=== PATIENT | female | born 1960 ===

== ENCOUNTER 2025-07-18 09:03 | Outpatient (AMB) | payer BC, SELFPAY | END 2025-07-18 12:51 | disposition home or self-care (01) | PROVIDERS: Visit Provider Registered Nurse Emergency | DX: J30.89 Other allergic rhinitis (principal) | CPT/HCPCS: 95117; 95165 ==

== ENCOUNTER 2025-08-01 09:13 | Outpatient (AMB) | payer BC, SELFPAY | END 2025-08-01 09:22 | disposition home or self-care (01) | LOC: HO.HMGAL 09:13 | PROVIDERS: Visit Provider Registered Nurse Emergency | DX: J30.89 Other allergic rhinitis (principal) | CPT/HCPCS: 95117; 95165 ==

== ENCOUNTER 2025-08-17 08:37 | Outpatient (AMB) | payer BC, SELFPAY | END 2025-08-17 08:37 | disposition home or self-care (01) | LOC: HO.HMGAL 08:37 | PROVIDERS: PCP Nurse Practitioner Family; Visit Provider Registered Nurse Emergency | DX: J30.89 Other allergic rhinitis (principal) | CPT/HCPCS: 95117; 95165 ==

== ENCOUNTER 2025-08-29 10:42 | Outpatient (AMB) | payer MEDICARE, SELFPAY ==
--- OUTSIDE RECORDS SUMMARY | 2025-08-29 12:49 | XMS_ITS | Data Portability ---
Author Organization [place] - [facility],, GRACE NORMAN MD Address [address] [address] Care Team Providers Care Parts Counterman Name Role Phone MIKEY CHAMBERLAIN Primary Care Provider [phone] Assessment No assessment recorded. Plan of Treatment Reminders Order Date Submit Date Provider Last Modified By Organization Details Last Modified Time Details Appointments ANNUAL EXAM 2025 09:20A M Grace Norman MD Not available Not available Not available Lab cytology report, thin prep, smear or scraping , cervical or vaginal 2024 025 KRISHNA [facility] (Centralized Electronic Ordering - All Locations), Patient Can Go To The Location Of Their Choice, [id number] 01/21/2025 16:15:56 hemoglob in, gastroin testinal , stool 2024 025 [email or web address] 1 In-Office Order, Internal Use Only DO Not Attach Compendium DO Not Attach Compendium, Do Not Delete/merge, [id number] 01/19/2025 10:58:38 pap test, thinprep , cervical 2022 023 [email or web address] [facility] (Centralized Electronic Ordering - All Locations), Patient Can Go To The Location Of Their Choice, [id number] 11/12/2023 09:06:10 fecal occult blood, stool 2022 023 [email or web address] 1 In-Office Order, Internal Use Only DO Not Attach Compendium DO Not Attach Compendium, Do Not Delete/merge, [id number] 11/05/2023 09:25:25 pap test, thinprep , cervical 2021 022 [email or web address] [facility] (Centralized Electronic Ordering - All Locations), Patient Can Go To The Location Of Their Choice, [id number] 10/15/2022 07:39:03 fecal occult blood, stool 2021 022 [email or web address] 1 In-Office Order, Internal Use Only DO Not Attach Compendium DO Not Attach Compendium, Do Not Delete/merge, [id number] 10/08/2022 09:45:51 pap test, thinprep , cervical 2020 021 [email or web address] [facility], Cytopathology Service, [address], [place], [address], 10/09/2021 07:23:57 fecal occult blood, stool 2020 021 [email or web address] 1 In-Office Order, Internal Use Only DO Not Attach Compendium DO Not Attach Compendium, Do Not Delete/merge, [id number] 09/18/2021 10:50:09 Referral endocrin ology referral - worsenin g osteopor osis despite being on raloxife ne since 2014. Has gastriti s, takes 40 mg omeprazo le daily. 2021 022 [facility] -(Surgeon), [address], [address], [place], [address], 02/19/2022 13:34:02 Procedures None recorded . Surgeries None recorded . Imaging US, breast, bilatera l, complete 2024 025 [facility] ([facility]), [address], [place], [address], 01/27/2025 15:37:49 MAMMO, screenin g, digital, bilatera l - Breast Aspirati on and/or Biopsy if needed 2024 025 [facility], [address], [address], [place], [address], 01/27/2025 15:37:39 MAMMO, screenin g, digital, bilatera l - Breast Aspirati on and/or Biopsy if needed 2022 023 [email or web address] [facility]), [address] [place], [address], 11/01/2024 08:41:22 MAMMO, screenin g, digital, bilatera l 2021 022 [facility]), [address] [place], [address], 10/01/2023 12:04:59 bone density 2020 021 [facility]), [facility] [place], [address], 11/30/2021 14:32:47 MAMMO, screenin g, digital, bilatera l [address] [facility] ([facility]), [facility] [place], [address], 09/30/2021 16:36:34 Medication Orders triamcin olone acetonid e 0.1 % topical ointment 2024 025 smacmillan 1 [facility], [facility], [place], [address], 01/19/2025 10:58:41 triamcin olone acetonid e 0.1 % topical ointment 2022 023 KRISHNA [facility], [address] [place] [address], [place], [address], 11/05/2023 09:29:01 raloxife ne 60 mg tablet 2021 022 KRISHNA [facility], [facility] [place], [address], 10/08/2022 09:46:21 raloxife ne 60 mg tablet 2020 021 KRISHNA [facility], [address] [facility], [place], [address], 09/18/2021 10:50:45 Patient TargetsNo targets recorded. Patient Instructions Encounter Date Encounter Id Patient Instructions Last Modified By Organization Details Last Modified Time 09/18/2021 [id number] osteoporosis: ca re instructions Not available 09/18/2021 10:50:43 learning about healthy weight Not available 09/18/2021 10:50:09 She is here for annual exam. She had a bone density last year that worsened despite taking raloxifene. I prescribed Prolia however her insurance was gong to make her pay more than $ 3,000 a shot and she could not afford that. She takes omeprazole 40 mg a day for her esophagitis/gastiri s, so Fosamax is not a good option for her. So she has been taking the raloxifene again for the past year. __ Note from 2020: She is here for annual exam, she is considering going on Prolia, has been on raloxifene but is still losing bone mass. Elects to conitnue using the E2 vaginal cream. ____ We discussed that we should repeat the bone density now, to see what her progress is. IF she continues to lose bone density then I recommend that she be referred to endocrinology to see if they have another option for management for her. She understands and agrees. Renew raloxifene for now. She appears to be doing well. She is advised to get 1500 mg of calcium daily into her diet and supplements combined. We discussed the benefits of adequate vitamin D supplementation to at least 400 units daily, daily aerobic exercise of 30 minutes, and stress reduction. Monthly self breast exam was taught, and stressed, and is advised to call if she discovers any new mass in the breast. Not available 09/18/2021 11:59:34 12/24/2021 [id number] osteoporosis: ca re instructions Not available 12/24/2021 09:46:50 This visit is a phone telehealth visit. The patient consented to the visit by phone. The patient was at home at the time of the call and the provider and patient were the only people on the line. I was at [address] [facility], [address], [place], [place], at the time of the call. She has worsening osteoporosis despite being on raloxifene since 2014. She has been trying to get adequate calcium and such, exercises, but her bone densitry is worsening. She has a history of gastritis, she takes 40 mg of omeprazole daily, since 2019, she tried to cut back but the pain was too intense. She has a past history of vitamin d deficiency but is taking a supplement. We discussed her diagnosis of osteoporosis. We reviewed the results of her bone density test, with reference to the computer images. We discussed the way that standard deviation is used for diagnosis, and what this means to her as she ages. Adequate calcium intake of 1500 mg daily, weight bearing exercise three times a week, and vitamin D supplementation of at least 400 units daily is suggested. She is advised to try to avoid tobacco, coffee, and steroids if possible. Benefits of an active lifestyle discussed as well. All questions answered. We discussed the different forms of medical treatment for osteoporosis. After a discussion concerning the potential risks and benefits of her options, including Fosamax, Miacalcin, and Actonel, she prefers to see a specialist as she cannot tolerate bisphosphonates due to her history of gastritis. We had previously ordered Prolia for her but her insurance company denied it. She will see the tram driver to see what they can offer her for improved management. Return for routine annual exam as scheduled. Face to face discussion for 30 minutes. Not available 12/24/2021 10:55:12 10/08/2022 [id number] osteoporosis: ca re instructions Not available 10/08/2022 09:45:51 learning about healthy weight Not available 10/08/2022 09:45:51 She is here for annual exam, did see an tram driver who recommended an infusion for her worsening osteoporosis but her insurance gave her the run around about coverage nad it was never done. Osteoporosis not improving and did get a little bit worse, even though she is on raloxifene since 2016. Bone density was done 11/2021. She is unable to work due to her neck pain, is seeing a painter plate for this. she is also seeing her GI because of her gastritis issues. Note from 2020: She is here for annual exam. She had a bone density last year that worsened despite taking raloxifene. I prescribed Prolia however her insurance was gong to make her pay more than $ 3,000 a shot and she could not afford that. She takes omeprazole 40 mg a day for her esophagitis/gastiri s, so Fosamax is not a good option for her. So she has been taking the raloxifene again for the past year. She appears to be doing well Monthly self breast exam was taught, and stressed, and is advised to call if she discovers any new mass in the breast. Renew Raloxifene. She has lichen sclerosis but has not filled Aristocort since 2018, will call if needs refill. Not available 10/08/2022 09:46:43 11/05/2023 [id number] osteoporosis: ca re instructions Not available 11/05/2023 09:28:58 learning about healthy weight Not available 11/05/2023 09:25:25 She is here for annual, she is having chronic dry heaving issues and cannot get an upper GI until December 2023, is frustrated. She did see the tram driver for her osteoporosis however the insurance did not cover the recommended infusions. She continues on the Raloxifene since 2015 however her bone density has been getting worse despite this. note from 2021: She is here for annual exam, did see an tram driver who recommended an infusion for her worsening osteoporosis but her insurance gave her the run around about coverage nad it was never done. Osteoporosis not improving and did get a little bit worse, even though she is on raloxifene since 2016. Bone density was done 11/2021. She is unable to work due to her neck pain, is seeing a painter plate for this. she is also seeing her GI because of her gastritis issues. At this point she really needs to go back to the tram driver, it does not make sense to continue the raloxifene for so long if it is not improving her bone density. She is frustrated because her GI issues take up a lot of her emotional energy, and she cannot get timely care. I understand. She is advised to see her tram driver again and try to form a plan that her insurance will cover. No need to continue the raloxifene anymore. She appears to be doing well. Renew Aristocort for lichen sclerosis. Monthly self breast exam was taught, and stressed, and is advised to call if she discovers any new mass in the breast. Not available 11/05/2023 09:29:29 01/19/2025 [id number] learning about healthy weight Not available 01/19/2025 10:58:38 She is here for annual, doing well, is having a pinched nerve issue seeing her PCP for this, will be getting therapy. The dry heaving was due to post nasal drip, now improving. Her had open heart surgery, is recovering. Her tram driver is managing her osteoporosis she is hainvg insurance issue with meds. Mammo shows dense breasts, she would like ultrasound for screening. ____ Note from 2022: She is here for annual, she is having chronic dry heaving issues and cannot get an upper GI until December 2023, is frustrated. She did see the tram driver for her osteoporosis however the insurance did not cover the recommended infusions. She continues on the Raloxifene since 2015 however her bone density has been getting worse despite this. She appears to be doing well. Monthly self breast exam was taught, and stressed, and is advised to call if she discovers any new mass in the breast. Not available 01/19/2025 11:03:19 Reason for Referral Endocrinology Referral for O steoporosis worsening osteoporosis despite being on raloxifene since 2014. Has gastritis, takes 40 mg omeprazole daily. Referring Physician: Grace Norman, Gynecology, Encounter Date: 12/24/2021 Results Created Date Observation Date Name Description Value Unit Range Abnormal Flag Note LastModifiedBy Organization Detail LastModifiedTime 09/18/20 21 09/18/2021 fecal occul t blood , stool Occult Blood negati ve Not Available In-Office Order Internal Use Only DO Not Attach Compendium DO Not Attach Compendium, Do Not Delete/merge, [id number] 09/18/2021 10:24:47 09/18/20 21 09/18/2021 PAP1C ASE [email or web address] ThinP rep Pap, Image d: NEGAT PAVITHRA FOR SQUAM OUS INTRA EPITH ELIAL LESIO N AND MALIG NISHA . Atrop hy. Note: The Pap test is a scree lino test with an inher ent false negat pavithra rate. Autom ated presc reeni ng of all liqui d based speci mens is perfo rmed by the ThinP rep Imagi ng [facility] mahnaz [place] , [place]( CP) (Case elect gwen da dima d 10 06 2021) ADEQU ACY: Satis facto ry . SOURC E: ThinP rep Pap HPV IF ASCUS , Cervi luis manuel, Image d CLINI LUIS MANUEL INFOR MATIO N: HPV If Diagn osis of ASCUS . LPS 09/13 neg, z01.4 19 Not Available [facility], Cytopathology Service [address] [place], [address], 10/08/2021 08:06:09 10/08/20 22 10/08/2022 [facility] results Steff nt Name: MARICARMEN DRISCOLL nt : [birth year] (Age: 62) Lab Acces mark #: [id number] Colle ction Date: 10/08 Acces mark Date: 10/09 Sign Out Date: 10/11 Tissu e Sourc e: 1: THINP REP PROPERTY MAINTENANCE TECHNICIAN PAP TEST, CERVI LUIS MANUEL: Final Diagn osis: NEGAT PAVITHRA FOR INTRA EPITH ELIAL LESIO N OR MALIG NISHA . Atrop hy. Satis facto ry for evalu ation . Clini luis manuel Histo ry: Date of Last Menst rual Perio d: not avail able Menst rual Histo ry: Post- menop ausal Contr acept pavithra Histo ry: not avail able Ancil serge Testi ng: HPV (ASCU S) Case image d by the ThinP rep Imagi ng Syste m with manua l rescr eenin g or revie w. Clini luis manuel Histo ry (othe r): Z01.4 19, routi ne scree n, LPS 09/18 negat pavithra Phone #: [phone], On-Ca ll Patho logis t: [id number] Not Available [facility] (Centralized Electronic Ordering - All Locations) Patient Can Go To The Location Of Their Choice, [id number] 10/11/2022 14:53:18 10/08/20 22 10/08/2022 fecal occul t blood , stool Occult Blood negati ve Not Available In-Office Order Internal Use Only DO Not Attach Compendium DO Not Attach Compendium, Do Not Delete/merge, [id number] 10/08/2022 08:56:58 11/05/20 23 11/05/2023 [facility] results Patie nt Name: MARICARMEN DRISCOLL nt : [birth year] (Age: 63) Lab Acces mark #: [id number] Colle ction Date: 11/05 Acces mark Date: 11/05 Sign Out Date: 11/11 Tissu e Sourc e: 1: THINP REP PROPERTY MAINTENANCE TECHNICIAN PAP TEST, CERVI LUIS MANUEL: Final Diagn osis: NEGAT PAVITHRA FOR INTRA EPITH ELIAL LESIO N OR MALIG NISHA . Atrop hy. Satis facto ry for evalu ation . Clini luis manuel Histo ry: Date of Last Menst rual Perio d: not avail able Menst rual Histo ry: Post- menop ausal Contr acept pavithra Histo ry: not avail able Ancil serge Testi ng: HPV (ASCU S) Case image d by the ThinP rep Imagi ng Syste m with snehal nicholson rescr eenin g or ace w. Perfo rmed at [facility] ate Refer ence Labor atory depar tment of Cytol ogy, [address] [place] Clini luis manuel Histo ry (othe r): Z01.4 19, routi ne scree n, LPS 10/08 neg Phone #: [phone], On-Ca ll Patho logis t: [id number] Not Available [facility] (Centralized Electronic Ordering - All Locations) Patient Can Go To The Location Of Their Choice, [id number] 11/11/2023 13:51:21 11/05/20 23 11/05/2023 fecal occul t blood , stool Occult Blood negati ve Not Available In-Office Order Internal Use Only DO Not Attach Compendium DO Not Attach Compendium, Do Not Delete/merge, [id number] 11/05/2023 08:59:09 01/19/20 25 01/21/2025 IGP, RFX APTIM A HPV ASCU diagnosis: Nikunj ARSHAD FOR INTRA EPITH ELIAL LESIO N OR SHEREEN CAMERON . CELLU LAR MESA ES ASSOC IATED WITH ATROP HY ARE PRESE NT. Not Available [facility] ([facility]) [address] [facility], [place], [address], 01/21/2025 16:15:55 01/19/20 25 01/21/2025 IGP, RFX APTIM A HPV ASCU specimen adequacy: Nikunj ga Satis factaguilar macdonald for evalu ation . Endoc ervic al compo nent may not be disti nguis hed in cases of atrop hy. Not Available [facility] ([facility]) [address] [facility], [place], [address], 01/21/2025 16:15:55 01/19/20 25 01/21/2025 IGP, RFX APTIM A HPV ASCU clinician provided ICD10: Nikunj ga Z01.4 19 Not Available [facility] ([facility]) [address] [facility], [place], [address], 01/21/2025 16:15:55 01/19/20 25 01/21/2025 IGP, RFX APTIM A HPV ASCU performed by: Nikunj Julien Prior , Cytoharmeet ga (ASCP ) Not Available [facility] ([facility]) [address] [facility], [place], [address], 01/21/2025 16:15:55 01/19/20 25 01/21/2025 IGP, RFX APTIM A HPV ASCU . . Not Available [facility] ([facility]) [address] [facility], [place], [address], 01/21/2025 16:15:55 01/19/20 25 01/21/2025 IGP, RFX APTIM A HPV ASCU note: Commen t The Pap smear is a scree lino test desig gisselle to aid in the detec tion of jericho ligna nt and malig nant condi tions of the uteri ne cervi x. It is not a diagn ostic proce dure and shoul d not be used as the sole means of detec ting cervi luis manuel cance r. Both false -posi tive and false -nega tive repor ts do occur . Not Available [facility] ([facility]) [address] [facility], [place], [address], 01/21/2025 16:15:55 01/19/20 25 01/21/2025 IGP, RFX APTIM A HPV ASCU test methodology: Commen t This liqui d based ThinP rep(R ) pap test was scree gisselle with the use of an image guide maurisio systjovita m. Not Available [facility] ([facility]) [address] [facility], [place], [address], 01/21/2025 16:15:55 01/19/20 25 01/21/2025 IGP, RFX APTIM A HPV ASCU . Commen t The HPV DNA refle x crite shad were not met with this speci men resul t there fore, no HPV testi ng was perfo rmed. Not Available [facility] ([facility]) [address] [place], [address], 01/21/2025 16:15:55 01/19/20 25 01/19/2025 hemog lobin , gastr ointe glendy l, stool Occult Blood negati ve Not Available In-Office Order Internal Use Only DO Not Attach Compendium DO Not Attach Compendium, Do Not Delete/merge, [id number] 01/19/2025 10:28:38 09/30/20 21 09/29/2021 MAMMO , scree lino, digit al, bilat eral No observ ation record ed. [address], [address], 10/01/2021 07:20:45 11/30/19 22 11/29/2021 bone densi ty No observ ation record ed. [address], [address], 12/03/2021 09:02:39 09/30/20 22 09/30/2022 MAMMO , scree lino, digit al, bilat eral No observ ation record ed. [address], [address], 10/01/2022 08:01:40 10/14/20 22 10/14/2022 MAMMO , diagn ostic , digit al, unila teral No observ ation record ed. [address], [address], 10/15/2022 08:25:08 10/01/20 23 10/01/2023 MAMMO , scree lino, digit al, bilat eral No observ ation record ed. [address], [address], 10/02/2023 03:07:53 11/08/20 24 11/08/2024 MAMMO , scree lino, digit al, bilat eral No observ ation record ed. [address], [address], 11/08/2024 11:12:11 Result Notes None recorded. Problems Name Problem SNOMED Code Status Onset Date Resolution Date Notes Provider Name and Address Organization Details Recorded Time Chronic neck pain 956508559731 [id number] Active degenerat pavithra disk disease Jeanne Fernandez ericka [place] - [facility], 7 09:51:36 Herpes zoster 9397760 Active had shingles when her mother passed in 2014 Grace Norman MD [address], [place], [place], [place] - [facility], 5 09:19:32 Osteoporo sis 52830764 Active Grace Norman MD [address], [place], [address], [place] - [facility], 5 09:20:59 Vitamin D deficienc y 59475933 Active Grace Norman MD [address], [place], [address], [place] - [facility], 5 09:20:59 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 Grace Norman MD [address], [place], [place], [place] - [facility], 5 09:19:32 Lichen sclerosus et atrophicu s Active 2016 Grace Norman MD [address], [place], [place], [place] - [facility], 7 09:35:22 Atrophic vaginitis 39171957 Active 2019 Grace Norman MD [address], [place], [address], [place] - [facility], 0 10:55:16 Gastritis 6422681 Active 2021 Grace Norman MD [address], [place], [address], [place] - [facility], 2 10:52:33 Neck webbing 06188556 Active 2022 BRIAN Smith in [facility], 3 09:06:29 Notes:currently trying to fi gure out stomach issues Problem Notes None recorded. Procedures Surgical History Date Name Laterality Status Provider Name and Address Organization Details Recorded Time 4 Most Recent Mammogram completed Sonia Smallwood in [facility], 01/11/2025 13:53:59 2 Most Recent Bone Density completed Sonia Smallwood in [facility], 12/24/2021 09:24:42 7 Vulvar Biopsy completed Grace Norman MD [address] [facility] [place] [facility],[address], [place], [address], BRIAN [facility]one [facility], 09/08/2017 10:11:40 5 Other completed Sonia Smallwood in [facility], 10/24/2015 08:49:11 9 Dilation and Curettage completed Sonia Smallwood in [facility], 03/10/2014 09:29:21 6 Other completed Sonia Smallwood in [facility], 03/10/2014 09:29:21 1 Other completed Sonia Smallwood in [facility], 03/10/2014 09:29:21 Imaging Results None recorded. Procedure Notes None recorded. Medical Equipment None Reported. Allergies Allergen ID Allergen Name Allergen Category Reaction Reaction Severity Criticality Documentation Date Start Date Code Code System Note Provider Name and Address Organization Details Recorded Time 11168 Product containin g penicilli n (product) medicatio n nausea Not available Not available 03/10/2014 58297 8001 SNOMED burni ng feeli ng BRIAN Aranda in [facility], 4 09:27:24 Medications Name Sig Start Date Stop Date Status Note LastModified by Organization Details LastModified Time cyclobenzap rine 10 mg tablet active Not Available Not Available Not Available amoxicillin 500 mg capsule 09/13 completed Not Available Not Available Not Available prednisone 10 mg tablet TAKE 6 TABLETS BY MOUTH X 1 DAY, THEN DECREASE BY 1 EVERY DAY UNTIL GONE 7 DAY SUPPLY) 01/19 completed Not Available Not Available Not Available benzonatate 200 mg capsule 08/21 completed Not Available Not Available Not Available sucralfate 1 gram tablet TAKE ONE TABLET BY MOUTH TWICE A DAY 11/05 completed Not Available Not Available Not Available promethazin e 12.5 mg tablet TAKE ONE TABLET BY MOUTH EVERY 6 HOURS NEEDED FOR MOTION SICKNESS 01/19 completed Not Available Not Available Not Available lisinopril 20 mg tablet TAKE 1 TABLET EVERY MORNING active Not Available Not Available No t Available ondansetron HCl 4 mg tablet TAKE ONE TABLET BY MOUTH EVERY 8 HOURS NEEDED FOR NAUSEA AND VOMITING 11/05 completed Not Available Not Available Not Available famotidine 40 mg tablet TAKE ONE TABLET BY MOUTH TWICE A DAY 01/19 completed Not Available Not Available Not Available prednisone 20 mg tablet active Not Available Not Available Not Available sertraline 100 mg tablet TAKE 1/2 TABLET BY MOUTH DAILY active Not Available Not Available No t Available amlodipine 2.5 mg tablet TAKE 1 TABLET EVERY MORNING active Not Available Not Available No t Available amlodipine 5 mg tablet TAKE ONE TABLET BY MOUTH EVERY MORNING 11/05 completed Not Available Not Available Not Available omeprazole 40 mg capsule,del ayed release TAKE ONE CAPSULE BY MOUTH EVERY DAY IN THE MORNING 10/08 completed Not Available Not Available Not Available tramadol 50 mg tablet TAKE ONE TO TWO TABLETS BY MOUTH TWICE A DAY NEEDED ONLY WITH ACETAMINO PHEN 1000MG active Not Available Not Available No t Available oxycodone-a cetaminophe n 5 mg-325 mg tablet active Not Available Not Available No t Available amoxicillin 875 mg tablet 08/21 completed Not Available Not Available Not Available famciclovir 500 mg tablet active Not Available Not Available Not Available diazepam 2 mg tablet 08/21 completed Not Available Not Available Not Available pantoprazol e 40 mg tablet,jeanne yed release TAKE ONE TABLET BY MOUTH EVERY DAY. STOP TAKING THE OMEPRAZOL E ONCE STARTING THIS MEDICINE 11/05 completed Not Available Not Available Not Available triamcinolo ne acetonide 0.1 % topical ointment APPLY 1 APPLICATI ON TOPICALLY TWO TIMES A DAY active Not Available Not Available No t Available lisinopril 10 mg tablet 06/19 completed Not Available Not Available Not Available gabapentin 300 mg capsule TAKE ONE CAPSULE BY MOUTH TWICE A DAY 08/21 completed Not Available Not Available Not Available omeprazole 20 mg capsule,del ayed release 11/05 completed Not Available Not Available Not Available raloxifene 60 mg tablet TAKE 1 TABLET DAILY active Not Available Not Available No t Available hydrocodone 5 mg-acetamin ophen 500 mg tablet active Not Available Not Available No t Available lorazepam 1 mg tablet TAKE 1 TABLET BY MOUTH ONE HOUR BEFORE INJECTION active Not Available Not Available No t Available estradiol 0.01% (0.1 mg/gram) vaginal cream Insert 0.5 g every day by vaginal route at bedtime. 09/18 completed Not Available Not Available Not Available ipratropium bromide 42 mcg (0.06 %) nasal spray TAKE 1 SPRAY IN EACH NOSTRIL TWO TIMES A DAY active Not Available Not Available No t Available ondansetron 4 mg disintegrat ing tablet DISSOLVE ONE TABLET BY MOUTH EVERY 6 HOURS SPARINGLY NEEDED FOR NAUSEA AND VOMITING active Not Available Not Available No t Available fluticasone propionate 50 mcg/actuati on nasal spray,suspe nsion active Not Available Not Available Not Available sertraline 50 mg tablet TAKE 1 TABLET DAILY active Not Available Not Available No t Available sulindac 200 mg tablet 06/19 completed Not Available Not Available Not Available diazepam 5 mg tablet 08/21 completed Not Available Not Available Not Available oxycodone 5 mg tablet active Not Available Not Available No t Available cyclobenzap rine 5 mg tablet TAKE ONE TO TWO TABLETS BY MOUTH ONCE DAILY AT BEDTIME NEEDED 11/05 completed Not Available Not Available Not Available rosuvastati n 5 mg tablet TAKE 1 TABLET DAILY active Not Available Not Available No t Available pregabalin 75 mg capsule TAKE 1 CAPSULE BY MOUTH 3 TIMES A DAY active Not Available Not Available No t Available Vitamin C 08/24 completed Not Available Not Available Not Available calcium active Not Available Not Avail able Not Available Vitamin D3 5,000 09/13 completed Not Available Not Available Not Available diclofenac 1 % topical gel 09/08 completed Not Available Not Available Not Available GaviLyte-G 236 gram-22.74 gram-6.74 gram-5.86 gram oral solution DRINK 8 OUNCES BY MOUTH EVERY 15 MINUTES DIRECTED 09/08 completed Not Available Not Available Not Available Prolia 60 mg/mL subcutaneou s syringe inject 1 ml by subcutane ous route every 6 months 09/18 completed Not Available Not Available Not Available Horizant ER 600 mg tablet,exte nded release 08/21 completed Not Available Not Available Not Available Banophen 50 mg capsule TAKE ONE CAPSULE BY MOUTH EVERY 4 TO 6 HOURS NEEDED FOR ALLERGIC REACTION 11/05 completed Not Available Not Available Not Available Multi Vitamin 06/19 completed Not Available Not Available Not Available Flucelvax (PF) 45 mcg (15 mcg x 3)/0.5 mL IM syringe 08/21 completed Not Available Not Available Not Available Fluvirin 45 mcg (15 mcg x 3)/0.5 mL intramuscul ar suspension VACCINATI ON ADMINISTE RED BY PHARMACIS T active Not Available Not Available No t Available Flucelvax Quad (PF) 60 mcg (15 mcg x 4)/0.5 mL IM syringe VACCINATI ON ADMINISTE RED BY PHARMACIS T active Not Available Not Available No t Available Readi-Cat 2 2 % (w/v) oral suspension COMPLETE PER RADIOLOGY RECOMMEND ATIONS active Not Available Not Available No t Available Shingrix (PF) 50 mcg/0.5 mL intramuscul ar suspension, kit active Not Available Not Available Not Available Fluzone Quad (PF) 60 mcg(15 mcgx4)/0.5 mL intramuscul ar syringe active Not Available Not Available N ot Available Flucelvax Quad (PF) 60 mcg (15 mcg x 4)/0.5 mL IM syringe VACCINATI ON ADMINISTE RED BY PHARMACIS T active Not Available Not Available No t Available Flucelvax Quad (PF) 60 mcg (15 mcg x 4)/0.5 mL IM syringe VACCINATI ON ADMINISTE RED BY PHARMACIS T active Not Available Not Available No t Available Vitals Date Recorded Body height Provider Name an d Address Organization Details Last Updated DateTime 12/24/2021 149.86 cm Sonia Baker in [facility], 12/24/2021 09:22:53 Date Recorded Body weight Body mass index (BMI) Body height Heart rate Systolic And Diastolic Provider Name and Address Organization Details Last Updated DateTime 01/19/2025 88778.94 g 23.6 kg/m2 147.32 cm 87 /min 129/62 mm[Hg] Sonia Smallwood in [facility], 01/19/2025 10:25:13 Date Recorded Body height Body mass index (BMI) Body weight Body temperature Heart rate Systolic And Diastolic Provider Name and Address Organization Details Last Updated DateTime 149.86 cm 23.3 kg/m2 80421.8 4 g 97 [degF] 103 /min 137/79 mm[Hg] Sonia Smallwood in [facility], 10:27:06 Date Recorded Body height Body mass index (BMI) Body weight Heart rate Systolic And Diastolic Provider Name and Address Organization Details Last Updated DateTime 10/08/2022 149.86 cm 24.4 kg/m2 46752.68 g 111 /min 155/82 mm[Hg] Hope Smallwood in [facility], 10/08/2022 09:00:37 Date Recorded Body weight Body mass index (BMI) Body height Provider Name and Address Organization Details Last Updated DateTime 11/05/2023 87091.83 g 20.4 kg/m2 149.86 cm Hope Smallwood in [facility], 11/05/2023 09:00:56 Social History Question Answer Notes LastModified by Organizat ion Details LastModified Time Tobacco Smoking Status Never Smoker Not Available [facility] 09/26/2020 03:19:39 How Many Years Have You Consumed Alcohol? 40 Information not available 09/18/2021 What Is Your Level Of Caffeine Consumption? Occasional [id number] Information not available 09/26/2020 In The 14 Days Before Symptom Onset, Have You Had Close Contact With A Laboratory-confirm ed COVID-19 While That Case Was Ill? No Information n ot available 09/18/2021 In The 14 Days Before Symptom Onset, Have You Had Close Contact With A Person Who Is Under Investigation For COVID-19 While That Person Was Ill? No Information not available 09/18/2021 Have You Been To An Area Known To Be High Risk For COVID-19? No Information not available 09/18/2021 What Type Of Diet Are You Following? REGULAR [id number] Information n ot available 09/26/2020 Which Illicit Or Recreational Drugs Have You Used? No [id number] Information not available 09/26/2020 Do You Reside In Or Have You Traveled To An Area Where Ebola Virus Transmission Is Active? No [id number] Information not available 09/26/2020 Education 12 Information no t available 03/10/2014 What Is The Highest Grade Or Level Of School You Have Completed Or The Highest Degree You Have Received? [id number] Information not available 09/18/2021 How Many Days In The Past Year Have You Had A Heavy Drinking Consumption (4+ Female, 5+ Male)? 0 [email or web address] Information no t available 08/21/2017 Are There Any Guns Present In Your Home? No Information not available 09/18/2021 High Number Of Sexual Partners No Information not available 06/19/2016 To Which Gender Do You Self-identify? Female Information n ot available 06/19/2016 Marital Status Informatio n not available 03/10/2014 What Was The Date Of Your Most Recent Tobacco Screening? 01/19/2025 Information not available 01/19/2025 What Is Your Relationship Status? Information not available 09/18/2021 Are You Sexually Active? Yes [id number] Information not available 09/26/2020 How Much Tobacco Do You Smoke? No [id number] Information not available 09/26/2020 General Stress Level Low Information not available 09/13/2020 How Many Years Have You Smoked Tobacco? 0 [id number] Information not available 09/26/2020 Have You Recently (within The Last 12 Weeks, Or During A Current ) Traveled To Or Lived In A Zika-affected Area? No Information not available 06/19/2016 How Many Days In The Past Year Have You Consumed 4 Or More Drinks? 0 Information not available 09/18/2021 Sex: Female Functional Status Question Answer Note LastModified by Organizat ion Details LastModified Time Do you use any illicit or recreational drugs? No Information not available 09/18/2021 Do you or have you ever used any other forms of tobacco or nicotine? No Information not available 10/08/2022 What is your level of alcohol consumption? Occasional [id number] Information not available 09/26/2020 Do you or have you ever used smokeless tobacco? Never used smokeless tobacco [id number] Information not available 09/26/2020 Are you currently employed? No Information not available 09/18/2021 What is your occupation? retired [employer] Information not available 08/21/2017 Do you or have you ever used e-cigarettes or vape? Never used electronic cigarettes [id number] Information not available 09/26/2020 What is your exercise level? Occasional Information not available 10/08/2022 Mental Status Question Answer Note LastModified by Organization D etails LastModified Time Do you feel stressed (tense, restless, nervous, or anxious, or unable to sleep at night)? [id number] Information not available 09/18/2021 Family History Relationship Description Onset Age of this Age Resolved Age Notes LastModified by Organization Details LastModified Time Mother Problem pancre tic ca Not available 10/24/2015 09:17:32 Mother Problem arthit is Not available 10/24/2015 09:17:32 Father Diabetes mellitus Not available 11/2014 09:17:32 Father Heart disease Not available 11/2014 09:17:32 Father Malignant neoplasm of lung Not available 11/2014 09:17:32 Father Problem copd Not availab le 10/24/2015 09:17:32 Medical History Condition Response Anesthesia complications N High Blood Pressure N Candidate for MyRisk panel N Autoimmune Condition N Thyroid Problems N Kidney or Bladder Problems N GI Problems N Lung Disease N Depression N Defects or Inherited Disease N History of Ovarian Cancer N Anemia N History of Breast Cancer N LEANNA exposure N BRCA testing in past N Osteopenia Y Psychiatric Illness N Anxiety Disorder N Diabetes N Arthritis N Headaches or Migraines N Infertility N Asthma N History of Cancer N Endometriosis N Hepatitis N Heart Disease N Hypertension N Osteoporosis Y Gynecological History Statement/Question Response If Post Menopausal, Age at Menopause 46 Age at Menarche 14 Most Recent Mammogram 11/08/2024 Age at First Child 30 Most Recent Bone Density 12/24/2021 Hormone Replacement Therapy N Obstetrics History GPAL:G 2 P 2 0 0 2 Type Value Full Term 2 Living 2 Total 2 Immunizations Vaccine Type Date Status Note Provider Nam e and Address Organization Details Recorded Time Influenza, split virus, trivalent, preservative 3 completed Not Available [facility] 11/05/2023 11:42:08 Influenza, split virus, trivalent, preservative 4 completed Not Available [facility] 11/05/2023 11:42:08 Influenza, split virus, trivalent, preservative 5 completed Not Available [facility] 11/05/2023 11:42:08 influenza, unspecified formulation 6 completed Not Available [facility] 11/05/2023 11:42:08 Influenza, split virus, quadrivalent, preservative 8 completed Not Available [facility] 11/05/2023 11:42:08 Influenza, split virus, quadrivalent, preservative 9 completed BRIAN [facility] in [facility], 09/13/2019 09:27:33 varicella 9 completed BRIAN Aranda in [facility], 09/13/2019 09:27:54 Influenza, split virus, quadrivalent, preservative 0 completed Not Available [facility] 11/05/2023 11:42:08 COVID-19, mRNA, LNP-S, PF, 30 mcg/0.3 mL dose 1 completed Not Available [facility] 11/05/2023 11:42:08 Influenza, split virus, quadrivalent, preservative 1 completed Not Available [facility] 11/05/2023 11:42:08 COVID-19, mRNA, LNP-S, PF, 30 mcg/0.3 mL dose 1 completed Not Available [facility] 11/05/2023 11:42:08 Influenza, split virus, trivalent, preservative 4 completed Hope Gutiérrez null, [place] [facility], 10/08/2022 09:01:17 COVID-19, mRNA, LNP-S, PF, 30 mcg/0.3 mL dose 1 completed Hope Gutiérrez null, [place] - [facility], 10/08/2022 09:01:18 COVID-19, mRNA, LNP-S, PF, 30 mcg/0.3 mL dose, liana-sucrose 2 completed Hope Gutiérrez null, [place] - [facility], 10/08/2022 09:01:18 Influenza, split virus, trivalent, preservative 3 completed Hope Gutiérrez null, [place] - [facility], 10/08/2022 09:01:18 COVID-19, mRNA, LNP-S, PF, 30 mcg/0.3 mL dose 1 completed Hope Gutiérrez null, [place] [facility], 10/08/2022 09:01:18 Influenza, MDCK, quadrivalent, PF 0 completed Hope Gutiérrez null, [place] [facility], 10/08/2022 09:01:18 Influenza, MDCK, quadrivalent, PF 7 completed Hope Gutiérrez null, [place] [facility], 10/08/2022 09:01:18 zoster recombinant 9 completed Hope Gutiérrez null, [place] - [facility], 10/08/2022 09:01:18 Influenza, split virus, trivalent, preservative 4 completed Hope Gutiérrez null, [place] [facility], 10/08/2022 09:01:18 Influenza, split virus, trivalent, preservative 6 completed Hope barnett, [place] - [facility], 10/08/2022 09:01:18 COVID-19, mRNA, LNP-S, PF, 30 mcg/0.3 mL dose 1 completed Hope barnett, [place] - [facility], 10/08/2022 09:01:18 Influenza, MDCK, quadrivalent, PF 2 completed Hope barnett, [place] [facility], 10/08/2022 09:01:18 Influenza, split virus, quadrivalent, PF 8 completed Hope barnett, [place] [facility], 10/08/2022 09:01:18 Influenza, split virus, trivalent, preservative 3 completed Hope barnett [place] [facility], 10/08/2022 09:01:18 Influenza, MDCK, quadrivalent, preservative 9 completed Hope barnett, [place] [facility], 10/08/2022 09:01:18 COVID-19, mRNA, LNP-S, bivalent, PF, 50 mcg/0.5 mL or 25mcg/0.25 mL dose 2 completed Hope barnett, [place] [facility], 10/08/2022 09:01:18 Influenza, split virus, trivalent, preservative 5 completed Hope barnett [place] [facility], 10/08/2022 09:01:18 Influenza, split virus, quadrivalent, PF 1 completed Hope barnett, [place] [facility], 10/08/2022 09:01:18 zoster recombinant 9 completed Hope barnett [place] - [facility], 10/08/2022 09:01:18 COVID-19, mRNA, LNP-S, PF, 50 mcg/0.5 mL 4 completed Sonia barnett, [place] - [facility], 01/19/2025 10:24:46 Influenza, split virus, trivalent, PF 4 completed Sonia barnett [place] - [facility], 01/19/2025 10:24:46 Past Encounters Encounter ID Performer Location Encounter Start Date Encounter Closed Date Diagnosis/Indication Diagnosis SNOMED-CT Code Diagnosis ICD10 Code Diagnosis IMO Codes Diagnosis Note [id number] MD GRACE Pena MD [address] [facility],[address] [place] [place] [address] 03/10/2014 09:00:07 03/10/2014 15:03:04 Specialized medical examination 15186165 Screening for malignant neoplasm of rectum 274001264 Screening mammography [id number] MD GRACE Pena MD [address] [place] [address],[address] [place] [place] [address] 06/15/2015 14:16:32 06/15/2015 15:43:52 Specialized medical examination 81174595 Screening for malignant neoplasm of rectum 045491775 Screening mammography 78972526 Menopausal syndrome 293133138 [id number] MD GRACE Pena MD [address] [facility],[address] [place] [place] [address] 10/24/2015 08:36:36 10/24/2015 11:46:55 Osteoporosis 20833958 M81.0 Vitamin D deficiency 347 46014 E55.9 [id number] MD GRACE Pena MD [address] [place] [address],[address] [place] [address] 06/19/2016 07:54:43 06/19/2016 10:11:54 Specialized medical examination 51958906 Z01.419 Screening for malignant neoplasm of rectum 041256686 Z12.12 Screening mammography 24 570531 Z12.31 Atrophic vulvovaginitis 40013637 N95.2 [id number] MD GRACE Pena MD [address] [facility],[address] [place] [address] 08/21/2017 09:40:54 08/21/2017 11:18:52 Specialized medical examination 64087173 Z01.419 Screening for malignant neoplasm of rectum 198296888 Z12.12 Screening mammography 24 160569 Z12.31 Osteoporosis 69567851 M8 1.0 [id number] MD GRACE Pena MD [address] [place] [id number] 09/08/2017 09:12:44 09/08/2017 13:09:26 Lesion of vulva 266781487 N90.4 [id number] MD GRACE Pena MD [address] [place] [id number] 5 08/24/2018 09:15:18 08/24/2018 13:12:22 Atrophic vulvovaginitis 88587396 N95.2 Specialize d medical examination 43163886 Z01.419 Screening for malignant neoplasm of rectum 119611623 Z12.12 Screening mammography 24 114340 Z12.31 Lichen scl erosus et atrophicus 46668947 L90.0 Osteoporosis 30316020 M8 1.0 [id number] MD GRACE Pena MD [address] [place] [id number] 5 09/13/2019 09:17:44 09/13/2019 10:26:52 Atrophic vulvovaginitis 61288596 N95.2 Specialize d medical examination 73796638 Z01.419 Screening for malignant neoplasm of rectum 256858504 Z12.12 Screening mammography 24 817308 Z12.31 Lichen scl erosus et atrophicus 97890898 L90.0 [id number] MD GRACE Pena MD [address] [place] [id number] 5 09/08/2020 10:12:23 09/08/2020 12:55:23 Osteoporosis 40548451 M81.0 [id number] MD GRACE Pena MD [address] [place] [id number] 5 09/13/2020 10:41:04 09/13/2020 11:17:12 Specialized medical examination 86674966 Z01.419 Screening for malignant neoplasm of rectum 270610338 Z12.12 Screening mammography 24 659889 Z12.31 Osteoporosis 12521714 M8 1.0 Atrophic vaginitis 27355 000 N95.2 [id number] MD GRACE Pena MD [address] [place] [address] [address] [facility] [address] 09/18/2021 10:21:33 09/18/2021 13:38:16 Specialized medical examination 23409203 Z01.419 Screening for malignant neoplasm of rectum 082938370 Z12.12 Screening mammography 24 240547 Z12.31 Menopausal syndrome 1237 88742 N95.8 Osteoporosis 55371258 M8 1.0 [id number] MD GRACE Pena MD [address] [place] [address] [place] [address] 12/24/2021 09:13:10 12/24/2021 13:24:56 Osteoporosis 46115995 M81.0 Gastritis 8956029 K29.70 Vitamin D deficiency 347 11173 E55.9 [id number] MD GRACE Pena MD [address] [place] [id number] 5 10/08/2022 08:49:53 10/08/2022 10:00:10 Specialized medical examination 78276879 Z01.419 Screening for malignant neoplasm of rectum 885795915 Z12.12 Screening mammography 24 120208 Z12.31 Osteoporosis 17564770 M8 1.0 Genital li torrez sclerosus 330950345 L90.0 [id number] MD GRACE Pena MD [address] [place] [address] [place] [address] 11/05/2023 08:54:55 11/05/2023 11:47:48 Specialized medical examination 35245193 Z01.419 Screening for malignant neoplasm of rectum 738641922 Z12.12 Screening mammography 24 141470 Z12.31 Gastritis 6310298 K29.70 Osteoporosis 11407659 M8 1.0 Genital li torrez sclerosus 789758119 L90.0 [id number] MD GRACE Pena MD [address] [place] [address] [place] [address] 01/19/2025 10:12:54 01/19/2025 11:55:19 Genital lichen sclerosus 498901112 L90.0 Specialize d medical examination 74515499 Z01.419 Screening for malignant neoplasm of rectum 125749212 Z12.12 Screening mammography 24 247622 Z12.31 Extremely dense breast composition 024481328 R92.343 Health Concerns Section Related Observation LastModified by Organization Detai ls LastModified Time None Recorded Concern Status LastModified by Organization Details LastModified Time None Recorded Advance Directives Directive None Recorded Payers Insurance Date Sequence Insurance Name Policy Number Policy Huber Covered Member ID Huber Member ID Guarantor Name 01/17/2025 1 [facility] [id number] Lila Bazan [id number] Lila Bazan 09/18/2021 1 [facility]: OUT OF STATE - BLUE CARD [id number] Kaushik Bazan [id number] Lila Krishnamurthyaguilar Notes Date Note Type Note Provider Name and Address Organization Details Recorded Time 09/18/2021 text/html She is here for annual exam. She had a bone density last year that worsened despite taking raloxifene. I prescribed Prolia however her insurance was gong to make her pay more than $ 3,000 a shot and she could not afford that. She takes omeprazole 40 mg a day for her esophagitis/gastiris, so Fosamax is not a good option for her.So she has been taking the raloxifene again for the past year. Note from 2020: She is here for annual exam, she is considering going on Prolia, has been on raloxifene but is still losing bone mass.Elects to conitnue using the E2 vaginal cream. Grace Norman MD [address] [place] [address] [address], [place], [address], [place] [facility], 09/18/2021 12:00:00 12/24/2021 text/html This visit is a phone telehealth visit. The patient consented to the visit by phone. The patient was at home at the time of the call and the provider and patient were the only people on the line. I was at [address] [place] [address] [address], [place], at the time of the call. She has worsening osteoporosis despite being on raloxifene since 2015. She has been trying to get adequate calcium and such, exercises, but her bone densitry is worsening. She has a history of gastritis, she takes 40 mg of omeprazole daily, since 2018, she tried to cut back but the pain was too intense. Grace Norman MD [address] [facility],[address], [place], [address], [place] [facility], 12/24/2021 10:55:35 10/08/2022 text/html She is here for annual exam, did see an tram driver who recommended an infusion for her worsening osteoporosis but her insurance gave her the run around about coverage nad it was never done. Osteoporosis not improving and did get a little bit worse, even though she is on raloxifene since 2015. She is unable to work due to her neck pain, is seeing a painter plate for this. Note from 2020: She is here for annual exam. She had a bone density last year that worsened despite taking raloxifene. I prescribed Prolia however her insurance was gong to make her pay more than $ 3,000 a shot and she could not afford that. She takes omeprazole 40 mg a day for her esophagitis/gastiris, so Fosamax is not a good option for her.So she has been taking the raloxifene again for the past year. Grace Norman MD [address] [facility],[address], [place], [address], [place] [facility], 10/08/2022 09:47:02 11/05/2023 text/html She is here for annual, she is having chronic dry heaving issues and cannot get an upper GI until December 2023, is frustrated. She did see the tram driver for her osteoporosis however the insurance did not cover the recommended infusions. She continues on the Raloxifene since 2015 however her bone density has been getting worse despite this. note from 2021: She is here for annual exam, did see an tram driver who recommended an infusion for her worsening osteoporosis but her insurance gave her the run around about coverage nad it was never done.Osteoporosis not improving and did get a little bit worse, even though she is on raloxifene since 2016.Bone density was done 11/2021.She is unable to work due to her neck pain, is seeing a painter plate for this. she is also seeing her GI because of her gastritis issues. Grace Norman MD [address], [place], [id number], [place] - [facility], 11/05/2023 09:29:47 01/19/2025 text/html She is here for annual, doing well, is having a pinched nerve issue seeing her PCP for this, will be getting therapy. The dry heaving was due to post nasal drip, now improving. Her had open heart surgery, is recovering. Her tram driver is managing her osteoporosis she is hainvg insurance issue with meds. Note from 2022: She is here for annual, she is having chronic dry heaving issues and cannot get an upper GI until December 2023, is frustrated.She did see the tram driver for her osteoporosis however the insurance did not cover the recommended infusions. She continues on the Raloxifene since 2016 however her bone density has been getting worse despite this. Grace Norman MD [address], [place], [address], [place] - [facility], 01/19/2025 11:03:42 OBGyn Episode No OBEpisode recorded.
== END 2025-08-29 11:01 | disposition home or self-care (01) ==
LOC: HO.HMGAL 10:42
PROVIDERS: PCP Nurse Practitioner Family; Visit Provider Registered Nurse Emergency
DX: J30.89 Other allergic rhinitis (principal)
CPT/HCPCS: 95117; 95165

== ENCOUNTER 2025-09-12 09:19 | Outpatient (AMB) | payer MEDICARE, SELFPAY | END 2025-09-12 09:24 | disposition home or self-care (01) | LOC: HO.HMGAL 09:19 | PROVIDERS: PCP Nurse Practitioner Family; Visit Provider Registered Nurse Emergency | DX: J30.89 Other allergic rhinitis (principal) | CPT/HCPCS: 95117; 95165 ==

== ENCOUNTER 2025-09-26 09:17 | Outpatient (AMB) | payer MEDICARE, SELFPAY ==
--- OUTSIDE RECORDS SUMMARY | 2025-09-26 10:19 | XMS_ITS | Data Portability ---
Author Organization [place] - [facility],, GRACE NORMAN MD Address [address] [address] Care Team Providers Care Casual Shoe Inspector Name Role Phone MIKEY CHAMBERLAIN Primary Care Provider [phone] Assessment No assessment recorded. Plan of Treatment [...] Go To The Location Of Their Choice, [id number] 01/21/2025 16:15:56 hemoglob in, gastroin testinal , stool 2024 025 [email or web address] 1 In-Office Order, Internal Use Only DO Not Attach Compendium DO Not Attach Compendium, Do Not Delete/merge, [id number] 01/19/2025 10:58:38 pap test, thinprep , cervical 2022 023 [email or web address] [facility] (Centralized Electronic Ordering - All Locations), Patient Can Go To The Location Of Their Choice, [id number] 11/12/2023 09:06:10 fecal occult blood, stool 2022 023 [email or web address] 1 In-Office Order, Internal Use Only DO Not Attach Compendium DO Not Attach Compendium, Do Not Delete/merge, [id number] 11/05/2023 09:25:25 pap test, thinprep , cervical 2021 022 [email or web address] [facility] (Centralized Electronic Ordering - All Locations), Patient Can Go To The Location Of Their Choice, [id number] 10/15/2022 07:39:03 fecal occult blood, stool 2021 022 [email or web address] 1 In-Office Order, Internal Use Only DO Not Attach Compendium DO Not Attach Compendium, Do Not Delete/merge, [id number] 10/08/2022 09:45:51 pap test, thinprep , cervical 2020 021 [email or web address] [facility], Cytopathology Service, [address], [place], [address], 10/09/2021 07:23:57 fecal occult blood, stool 2020 021 [email or web address] 1 In-Office Order, Internal Use Only DO Not Attach Compendium DO Not Attach Compendium, Do Not Delete/merge, [id number] 09/18/2021 10:50:09 Referral endocrin ology referral - worsenin g osteopor osis despite being on raloxife ne since 2014. Has gastriti s, takes 40 mg omeprazo le daily. 2021 022 [facility] -(Surgeon), [address], [address], [place], [address], 02/19/2022 13:34:02 Procedures None recorded . Surgeries None recorded . Imaging US, breast, bilatera l, complete [address] [facility] ([facility]), [address], [place], [address], 09/20/2025 10:42:46 MAMMO, screenin g, digital, bilatera l - Breast Aspirati on and/or Biopsy if needed 2024 025 [facility] Orders, [address], [address], [place], [address], 01/27/2025 15:37:39 MAMMO, screenin g, digital, bilatera l - Breast Aspirati on and/or Biopsy if needed 2022 023 [email or web address] [facility]), [address] [place], [address], 11/01/2024 08:41:22 MAMMO, screenin g, digital, bilatera l 2021 022 [facility]), [address] [place], [address], 10/01/2023 12:04:59 bone density 2020 021 [facility]), [address] [place], [address], 11/30/2021 14:32:47 MAMMO, screenin g, digital, bilatera l [address] [facility] ([facility]), [address] [place], [address], 09/30/2021 16:36:34 Medication Orders triamcin olone acetonid e 0.1 % topical ointment 2024 025 smacmillan 1 [facility], [facility], [place], [address], 01/19/2025 10:58:41 triamcin olone acetonid e 0.1 % topical ointment 2022 023 [facility], [address] [place] [address], [place], [address], 11/05/2023 09:29:01 raloxife ne 60 mg tablet 2021 022 [facility], [address] [place] [address], [address], 10/08/2022 09:46:21 raloxife ne 60 mg tablet 2020 021 [facility], [address] [facility], [place], [address], 09/18/2021 10:50:45 Patient TargetsNo targets recorded. Patient Instructions Encounter Date Encounter Id Patient Instructions Last Modified By Organization Details Last Modified Time 09/18/2021 [id number] osteoporosis: ca re instructions Not available 09/18/2021 [...] the breast. Not available 09/18/2021 11:59:34 12/24/2021 [id number] osteoporosis: ca re instructions Not available 12/24/2021 09:46:50 This visit is a phone telehealth visit. The patient consented to the visit by phone. The patient was at home at the time of the call and the provider and patient were the only people on the line. I was at [address] [facility], [address], [place], [place], at the time of the call. [...] company denied it. She will see the adoption counselor to see what they can offer her for improved management. Return for routine annual exam as scheduled. Face to face discussion for 30 minutes. Not available 12/24/2021 10:55:12 10/08/2022 [id number] osteoporosis: ca re instructions Not available 10/08/2022 09:45:51 learning about healthy weight Not available 10/08/2022 09:45:51 She is here for annual exam, did see an adoption counselor who recommended an infusion for her worsening osteoporosis but her insurance gave her the run around about coverage nad it was never done. Osteoporosis not improving and did get a little bit worse, even though she is on raloxifene since 2016. Bone density was done 11/2021. 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 she is also seeing her [...] sclerosis but has not filled Aristocort since 2019, will call if needs refill. Not available 10/08/2022 09:46:43 11/05/2023 [id number] osteoporosis: ca re instructions Not available 11/05/2023 09:28:58 learning about healthy weight Not available 11/05/2023 09:25:25 She is here for annual, she is having chronic dry heaving issues and cannot get an upper GI until December 2023, is frustrated. She did see the adoption counselor for her osteoporosis however the insurance did not cover the recommended infusions. She continues on the Raloxifene since 2015 however her bone density has been getting worse despite this. note from 2021: She is here for annual exam, did see an adoption counselor who recommended an infusion for her worsening osteoporosis but her insurance gave her the run around about coverage nad it was never done. Osteoporosis not improving and did get a little bit worse, even though she is on raloxifene since 2016. Bone density was done 11/2021. 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 she is also seeing her GI because of her gastritis issues. At this point she really needs to go back to the adoption counselor, it does not make sense to continue the raloxifene for so long if it is not improving her bone density. She is frustrated because her GI issues take up a lot of her emotional energy, and she cannot get timely care. I understand. She is advised to see her adoption counselor again and try to form a plan that her insurance will cover. No need to continue the raloxifene anymore. She appears to be doing well. Renew Aristocort for lichen sclerosis. Monthly self breast exam was taught, and stressed, and is advised to call if she discovers any new mass in the breast. Not available 11/05/2023 09:29:29 01/19/2025 [id number] learning about healthy weight Not available 01/19/2025 10:58:38 She is here for annual, doing well, is having a pinched nerve issue seeing her PCP for this, will be getting therapy. The dry heaving was due to post nasal drip, now improving. Her had open heart surgery, is recovering. Her adoption counselor is managing her osteoporosis she is hainvg insurance issue with meds. Mammo shows dense breasts, she would like ultrasound for screening. ____ Note from 2022: She is here for annual, she is having chronic dry heaving issues and cannot get an upper GI until December 2023, is frustrated. She did see the adoption counselor for her osteoporosis however the insurance did [...] DO Not Attach Compendium, Do Not Delete/merge, [id number] 09/18/2021 10:24:47 09/18/20 21 09/18/2021 PAP1C ASE [id number] ThinP rep Pap, Image d: NEGAT PAVITHRA FOR SQUAM OUS INTRA EPITH ELIAL LESIO N AND MALIG NISHA . Atrop hy. Note: The Pap test is a scree lino test with an inher ent false negat pavithra rate. Autom ated presc reeni ng of all liqui d based speci mens is perfo rmed by the ThinP rep Imagi ng Kay bentley [facility] dMansi Duron , [place]( CP) (Case elect gwen da dima d 10 06 2021) ADEQU ACY: Satis facto ry . SOURC E: ThinP rep Pap HPV IF ASCUS , Cervi luis manuel, Image d CLINI LUIS MANUEL INFOR MATIO N: HPV If Diagn osis of ASCUS . LPS 09/13 neg, z01.4 19 Not Available [facility], Cytopathology Service [address] [place], [address], 10/08/2021 08:06:09 10/08/20 22 10/08/2022 [facility] results Steff nt Name: MARICARMEN DRSICOLL nt : [birth year] (Age: 62) Lab Acces mark #: [id number] Colle ction Date: 10/08 Acces mark Date: 10/09 Sign Out Date: 10/11 Tissu e Sourc e: 1: THINP REP ATHLETICS TEACHER PAP TEST, CERVI LUIS MANUEL: Final Diagn [...] rep Imagi ng Syste m with snehal ricer shaw mcfadden or ace freitas Clini luis manuel Histo ry (othe r): Z01.4 19, routi ne scree n, LPS 09/18 negat pavithra Phone #: [phone], On-Ca ll Patho logis t: [id number] Not Available [facility] (Centralized Electronic Ordering - All Locations) Patient Can Go To The Location Of Their Choice, [id number] 10/11/2022 14:53:18 10/08/20 22 10/08/2022 fecal occul t blood , stool Occult Blood negati ve Not Available In-Office Order Internal Use Only DO Not Attach Compendium DO Not Attach Compendium, Do Not Delete/merge, [id number] 10/08/2022 08:56:58 11/05/20 23 11/05/2023 [facility] results Patie nt Name: MARICARMEN DRISCOLL nt : [birth year] (Age: 63) Lab Acces mark #: [id number] Colle ction Date: 11/05 Acces mark Date: 11/05 Sign Out Date: 11/11 Tissu e Sourc e: 1: THINP REP ATHLETICS TEACHER PAP TEST, CERVI LUIS MANUEL: Final Diagn osis: NEGAT PAVITHRA FOR INTRA EPITH ELIAL LESIO N OR MALIG NISHA . Atrop hy. Satis facto ry for evalu ation . Clini luis manuel Histo ry: Date of Last Menst rual Perio d: not avail able Menst rual Histo ry: Post- menop ausal Contr acept pavithra Histo ry: not avail able Ancil srege Testi ng: HPV (ASCU S) Case image d by the ThinP rep Imagi ng Syste m with snehal ricer shaw mcfadden or ace mendoza. Perfo rmed at [facility] ate Refer ence [facility] Cytol o[facility], [address] [place] Clini luis manuel Histo ry (othe r): Z01.4 19, larryi ne lissae n, LPS 10/08 neg Phone #: [phone], On-Ca ll Patho logis t: [id number] Not Available [facility] (Centralized Electronic Ordering - All Locations) Patient Can Go To The Location Of Their Choice, [id number] 11/11/2023 13:51:21 11/05/20 23 11/05/2023 fecal occul t blood , stool Occult Blood negati ve Not Available In-Office Order Internal Use Only DO Not Attach Compendium DO Not Attach Compendium, Do Not Delete/merge, [id number] 11/05/2023 08:59:09 01/19/20 25 01/21/2025 IGP, RFX APTIM A HPV ASCU diagnosis: Nikunj ARSHAD FOR INTRA EPITH ELIAL LESIO N OR SHEREEN CAMERON . CELLU LAR MESA ES ASSOC IATED WITH ATROP HY ARE PRESE NT. Not Available [facility] ([facility]) [address] [facility], [place], [address], 01/21/2025 16:15:55 01/19/20 25 01/21/2025 IGP, RFX APTIM A HPV ASCU specimen adequacy: Nikunj ga Satis facto torres for evalu ation . Endoc ervic al compo nent may not be disti nguis hed in cases of atrop hy. Not Available [facility] ([facility]) [address] [facility], [place], [address], 01/21/2025 16:15:55 01/19/20 25 01/21/2025 IGP, RFX APTIM A HPV ASCU clinician provided ICD10: Nikunj ga Z01.4 19 Not Available [facility] ([facility]) [address] [place], [address], 01/21/2025 16:15:55 01/19/20 25 01/21/2025 IGP, RFX APTIM A HPV ASCU performed by: Nikunj Julien Prior , Cytoharmeet ga (ASCP ) Not Available [facility] ([facility]) [address] [place], [address], 01/21/2025 16:15:55 01/19/20 25 01/21/2025 IGP, RFX APTIM A HPV ASCU . . Not Available [facility] ([facility]) [address] [facility], [place], [address], 01/21/2025 16:15:55 01/19/20 25 01/21/2025 IGP, RFX [...] ts do occur . Not Available [facility] ([facility]) [address] [place], [address], 01/21/2025 16:15:55 01/19/20 25 01/21/2025 IGP, RFX APTIM A HPV ASCU test methodology: Commen t This liqui d based ThinP rep(R ) pap test was scree gisselle with the use of an image guide d systjovita m. Not Available [facility] ([facility]) [address] [place], [address], 01/21/2025 16:15:55 01/19/20 25 01/21/2025 IGP, RFX APTIM A HPV ASCU . Commen t The HPV DNA refle x crite shad were not met with this speci men resul t there fore, no HPV testi ng was perfo rmed. Not Available [facility] ([facility]) [address] [place], [address], 01/21/2025 16:15:55 01/19/20 25 01/19/2025 hemog lobin , gastr ointe glendy l, stool Occult Blood negati ve Not Available In-Office Order Internal Use Only DO Not Attach Compendium DO Not Attach Compendium, Do Not Delete/merge, [id number] 01/19/2025 10:28:38 09/30/20 21 09/29/2021 MAMMO , scree lino, digit al, bilat eral No observ ation record ed. [address], [address], 10/01/2021 07:20:45 11/30/19 22 11/29/2021 bone densi ty No observ ation record ed. [address], [address], 12/03/2021 09:02:39 09/30/20 22 09/30/2022 MAMMO , scree lino, digit al, bilat eral No observ ation record ed. [address], [address], 10/01/2022 08:01:40 10/14/20 22 10/14/2022 MAMMO , diagn ostic , digit al, unila teral No observ ation record ed. [address], [address], 10/15/2022 08:25:08 10/01/20 23 10/01/2023 MAMMO , scree lino, digit al, bilat eral No observ ation record ed. [address], [address], 10/02/2023 03:07:53 11/08/20 24 11/08/2024 MAMMO , scree lino, digit al, bilat eral No observ ation record ed. [address], [address], 11/08/2024 11:12:11 09/20/20 25 09/20/2025 US, regis ga, lesli saleem, compl ete No observ ation record ed. [facility] [address] [facility], [place], [address], 09/20/2025 11:03:16 Result Notes None recorded. Problems Name Problem SNOMED Code Status Onset Date Resolution Date Notes Provider Name and Address Organization Details Recorded Time Chronic neck pain 532982686382 7 Active degenerat pavithra disk disease Jeanne barnett [place] - [facility], 7 09:51:36 Herpes zoster 6721478 Active had shingles when her mother passed in 2014 Grace Norman MD [address], [place], [place] - [facility], 5 09:19:32 Osteoporo sis 54910885 Active Grace Norman MD [address] [facility],[address], [place], [address], [place] - [facility], 5 09:20:59 Vitamin D deficienc y 17005707 Active Grace Norman MD [address], [place], [address], [place] - 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, 5 09:19:32 Lichen sclerosus et atrophicu s Active 2016 Grace Norman MD [address], [place], [address], [place] - [facility], 7 09:35:22 Atrophic vaginitis 70425949 Active 2019 Grace Norman MD [address], [place], [address], [place] - [facility], 0 10:55:16 Gastritis 8305288 Active 2021 Grace Norman MD [address] [facility],[address], [place], [address], [place] - [facility], 2 10:52:33 Neck webbing 63578148 Active 2022 Hope barnett [place] - [facility], 3 09:06:29 Notes:currently trying to fi gure out stomach issues Problem Notes None recorded. Procedures Surgical History Date Name Laterality Status Provider Name and Address Organization Details Recorded Time 4 Most Recent Mammogram completed Sonia Berger [place] - [facility], 01/11/2025 13:53:59 2 Most Recent Bone Density completed Sonia Berger [place] - [facility], 12/24/2021 09:24:42 7 Vulvar Biopsy completed Grace Norman MD [address] [facility],[address], [place], [address], [place] - [facility], 09/08/2017 10:11:40 5 Other [facility] [place] [facility], 10/24/2015 08:49:11 9 Dilation and Curettage completed Sonia Berger [place] - [facility], 03/10/2014 09:29:21 6 Other completed Sonia Berger [place] - [facility], 03/10/2014 09:29:21 1 Other completed Sonia Ab [place] - [facility], 03/10/2014 09:29:21 Imaging Results None recorded. Procedure Notes None recorded. Medical Equipment None Reported. Allergies Allergen ID Allergen Name Allergen Category Reaction Reaction Severity Criticality Documentation Date Start Date Code Code System Note Provider Name and Address Organization Details Recorded Time 81924 Product containin g penicilli n (product) medicatio n nausea Not available Not available 03/10/2014 24638 8001 SNOMED burni ng feeli ng Sonia barnett [place] - [facility], 4 09:27:24 Medications Name Sig Start Date [...] DateTime 12/24/2021 149.86 cm Sonia Baker in [facility], 12/24/2021 09:22:53 Date Recorded Body weight Body mass index (BMI) Body height Heart rate Systolic And Diastolic Provider Name and Address Organization Details Last Updated DateTime 01/19/2025 68447.94 g 23.6 kg/m2 147.32 cm 87 /min 129/62 mm[Hg] Sonia Smallwood in [facility], 01/19/2025 10:25:13 Date Recorded Body height Body mass index (BMI) Body weight Body temperature Heart rate Systolic And Diastolic Provider Name and Address Organization Details Last Updated DateTime 149.86 cm 23.3 kg/m2 14244.8 4 g 97 [degF] 103 /min 137/79 mm[Hg] Sonia Smallwood in [facility], 10:27:06 Date Recorded Body height Body mass index (BMI) Body weight Heart rate Systolic And Diastolic Provider Name and Address Organization Details Last Updated DateTime 10/08/2022 149.86 cm 24.4 kg/m2 17295.68 g 111 /min 155/82 mm[Hg] Hope Smallwood in [facility], 10/08/2022 09:00:37 Date Recorded Body weight Body mass index (BMI) Body height Provider Name and Address Organization Details Last Updated DateTime 11/05/2023 87744.83 g 20.4 kg/m2 149.86 cm Hope Smallwood in [facility], 11/05/2023 09:00:56 Social History Question Answer Notes LastModified by Organizat ion Details LastModified Time Tobacco Smoking Status Never Smoker Not Available [facility] 09/26/2020 03:19:39 How Many Years Have You Consumed Alcohol? 40 Information not available 09/18/2021 What Is Your Level Of Caffeine Consumption? Occasional [id number] Information not available 09/26/2020 In The 14 [...] Type Of Diet Are You Following? REGULAR [id number] Information n ot available 09/26/2020 Which Illicit Or Recreational Drugs Have You Used? No [id number] Information not available 09/26/2020 Do You Reside In Or Have You Traveled To An Area Where Ebola Virus Transmission Is Active? No [id number] Information not available 09/26/2020 Education 12 Information no t available 03/10/2014 What Is The Highest Grade Or Level Of School You Have Completed Or The Highest Degree You Have Received? [id number] Information not available 09/18/2021 How Many Days [...] available 09/18/2021 Are You Sexually Active? Yes [id number] Information not available 09/26/2020 How Much Tobacco Do You Smoke? No [id number] Information not available 09/26/2020 General Stress Level Low Information not available 09/13/2020 How Many Years Have You Smoked Tobacco? 0 [id number] Information not available 09/26/2020 Have You Recently [...] is your level of alcohol consumption? Occasional [id number] Information not available 09/26/2020 Do you or have you ever used smokeless tobacco? Never used smokeless tobacco [id number] Information not available 09/26/2020 Are you currently employed? No Information not available 09/18/2021 What is your occupation? retired [employer] Information not available 08/21/2017 Do you or have you ever used e-cigarettes or vape? Never used electronic cigarettes [id number] Information not available 09/26/2020 What is your exercise level? Occasional Information not available 10/08/2022 Mental Status Question Answer Note LastModified by Organization D etails LastModified Time Do you feel stressed (tense, restless, nervous, or anxious, or unable to sleep at night)? [id number] Information not available 09/18/2021 Family History Relationship [...] for MyRisk panel N Autoimmune Condition N Kidney or Bladder Problems N Thyroid Problems N Depression N Lung Disease N GI Problems N Defects or Inherited Disease N Anemia N History of Ovarian Cancer N History of Breast Cancer N LEANNA [...] virus, trivalent, preservative 3 completed Not Available [facility] 11/05/2023 11:42:08 Influenza, split virus, trivalent, preservative 4 completed Not Available [facility] 11/05/2023 11:42:08 Influenza, split virus, trivalent, preservative 5 completed Not Available [facility] 11/05/2023 11:42:08 influenza, unspecified formulation 6 completed Not Available [facility] 11/05/2023 11:42:08 Influenza, split virus, quadrivalent, preservative 8 completed Not Available [facility] 11/05/2023 11:42:08 Influenza, split virus, quadrivalent, preservative 9 completed BRIAN [facility], 09/13/2019 09:27:33 varicella 9 completed BRIAN [facility], 09/13/2019 09:27:54 Influenza, split virus, quadrivalent, preservative 0 completed Not Available [facility] 11/05/2023 11:42:08 COVID-19, mRNA, LNP-S, PF, 30 mcg/0.3 mL dose 1 completed Not Available [facility] 11/05/2023 11:42:08 Influenza, split virus, quadrivalent, preservative 1 completed Not Available [facility] 11/05/2023 11:42:08 COVID-19, mRNA, LNP-S, PF, 30 mcg/0.3 mL dose 1 completed Not Available [facility] 11/05/2023 11:42:08 Influenza, split virus, trivalent, preservative 4 completed Hope Gutiérrez null, [place] - [facility], 10/08/2022 09:01:17 COVID-19, mRNA, LNP-S, PF, 30 mcg/0.3 mL dose 1 completed Hope Gutéirrez null, [place] - [facility], 10/08/2022 09:01:18 COVID-19, mRNA, LNP-S, PF, 30 mcg/0.3 mL dose, liana-sucrose 2 completed Hope Gutiérrez null, [place] - [facility], 10/08/2022 09:01:18 Influenza, split virus, trivalent, preservative 3 completed Hope Marla null, [place] - [facility], 10/08/2022 09:01:18 COVID-19, mRNA, LNP-S, PF, 30 mcg/0.3 mL dose 1 completed Hope Gutiérrez null, [place] [facility], 10/08/2022 09:01:18 Influenza, MDCK, quadrivalent, PF 0 completed Hope Marla null, [place] [facility] [...] split virus, trivalent, preservative 6 completed Hope Gutiérrez null, [place] - [facility], 10/08/2022 09:01:18 COVID-19, mRNA, LNP-S, PF, 30 mcg/0.3 mL dose 1 completed Hope Gutiérrez null, [place] - [facility], 10/08/2022 09:01:18 Influenza, MDCK, quadrivalent, PF 2 completed Hope Gutiérrez null, [place] - [facility], 10/08/2022 09:01:18 Influenza, split virus, quadrivalent, PF 8 completed Hope Gutiérrez null, [place] - [facility], 10/08/2022 09:01:18 Influenza, split virus, trivalent, preservative 3 completed Hope barnett, [place] - [facility], 10/08/2022 09:01:18 Influenza, MDCK, quadrivalent, preservative 9 completed Hope Gutiérrez null, [place] - [facility], 10/08/2022 09:01:18 COVID-19, mRNA, LNP-S, bivalent, PF, 50 mcg/0.5 mL or 25mcg/0.25 mL dose 2 completed Hope Gutiérrez null, [place] - [facility], 10/08/2022 09:01:18 Influenza, split virus, trivalent, preservative 5 completed Hope Gutiérrez null, [place] - [facility], 10/08/2022 09:01:18 Influenza, split virus, quadrivalent, PF 1 completed Hope Gutiérrez null, [place] - [facility], 10/08/2022 09:01:18 zoster recombinant 9 completed Hope Marla null, [place] - [facility], 10/08/2022 09:01:18 COVID-19, mRNA, LNP-S, PF, 50 mcg/0.5 mL 4 completed BRIAN Aranda in [facility], 01/19/2025 10:24:46 Influenza, split virus, trivalent, PF 4 completed BRIAN Aranda in [facility], 01/19/2025 10:24:46 Past Encounters Encounter ID Performer Location Encounter Start Date Encounter Closed Date Diagnosis/Indication Diagnosis SNOMED-CT Code Diagnosis ICD10 Code Diagnosis IMO Codes Diagnosis Note [id number] MD GRACE Pena MD [address] [place] [address], [address] [place] [address] 03/10/2014 09:00:07 03/10/2014 15:03:04 Specialized medical examination [id number] Screening for malignant neoplasm of rectum 473159628 Screening mammography [id number] MD GRACE Pena MD [address] [place] [address], [address] [place] [address] 06/15/2015 14:16:32 06/15/2015 15:43:52 Specialized medical examination 85301325 Screening for malignant neoplasm of rectum 140909574 Screening mammography 58765118 Menopausal syndrome [id number] MD GRACE Pena MD [address] [place] [address], [address] [address] 10/24/2015 08:36:36 10/24/2015 11:46:55 Osteoporosis 46968589 M81.0 Vitamin D deficiency 347 53175 E55.9 [id number] MD GRACE Pena MD [address] [place] [address], [address] [place] [address] 06/19/2016 07:54:43 06/19/2016 10:11:54 Specialized medical examination 05923786 Z01.419 Screening for malignant neoplasm of rectum 978792449 Z12.12 Screening mammography 24 828879 Z12.31 Atrophic vulvovaginitis 95550522 N95.2 [id number] MD GRACE Pena MD [address] [place] [address] 08/21/2017 09:40:54 08/21/2017 11:18:52 Specialized medical examination 87164652 Z01.419 Screening for malignant neoplasm of rectum 314220407 Z12.12 Screening mammography 24 558907 Z12.31 Osteoporosis 97343850 M8 1.0 [id number] MD GRACE Pena MD [address] [place] [address] 5 09/08/2017 09:12:44 09/08/2017 13:09:26 Lesion of vulva 573419172 N90.4 [id number] MD GRACE Pena MD [address] [place] [address] 5 08/24/2018 09:15:18 08/24/2018 13:12:22 Atrophic vulvovaginitis 49168123 N95.2 Specialize d medical examination 95231320 Z01.419 Screening for malignant neoplasm of rectum 409705708 Z12.12 Screening mammography 24 517267 Z12.31 Lichen scl erosus et atrophicus 34032264 L90.0 Osteoporosis 75700998 M8 1.0 [id number] MD GRACE Pena MD [address] [place] [address] 5 09/13/2019 09:17:44 09/13/2019 10:26:52 Atrophic vulvovaginitis 31938232 N95.2 Specialize d medical examination 01582508 Z01.419 Screening for malignant neoplasm of rectum 375784165 Z12.12 Screening mammography 24 360749 Z12.31 Lichen scl erosus et atrophicus 08115171 L90.0 [id number] MD GRACE Pena MD [address] [place] [address] 5 09/08/2020 10:12:23 09/08/2020 12:55:23 Osteoporosis 05289722 M81.0 [id number] MD GRACE Pena MD [address] [place] [address] 5 09/13/2020 10:41:04 09/13/2020 11:17:12 Specialized medical examination 84653839 Z01.419 Screening for malignant neoplasm of rectum 368524074 Z12.12 Screening mammography 24 749463 Z12.31 Osteoporosis 64817849 M8 1.0 Atrophic vaginitis 43663 000 N95.2 [id number] MD GRACE Pena MD [address] [place] [address] 5 09/18/2021 10:21:33 09/18/2021 13:38:16 Specialized medical examination 99579313 Z01.419 Screening for malignant neoplasm of rectum 849248693 Z12.12 Screening mammography 24 771834 Z12.31 Menopausal syndrome 1237 88774 N95.8 Osteoporosis 08025564 M8 1.0 [id number] MD GRACE Pena MD [address] [place] [address] 5 12/24/2021 09:13:10 12/24/2021 13:24:56 Osteoporosis 32497969 M81.0 Gastritis 5892987 K29.70 Vitamin D deficiency 347 84963 E55.9 [id number] MD GRACE Pena MD [address] [place] [address] 5 10/08/2022 08:49:53 10/08/2022 10:00:10 Specialized medical examination 51495874 Z01.419 Screening for malignant neoplasm of rectum 729006725 Z12.12 Screening mammography 24 018923 Z12.31 Osteoporosis 96387301 M8 1.0 Genital li torrez sclerosus 367120892 L90.0 [id number] MD GRACE Pena MD [address] [place] [address] 5 11/05/2023 08:54:55 11/05/2023 11:47:48 Specialized medical examination 33036348 Z01.419 Screening for malignant neoplasm of rectum 031236802 Z12.12 Screening mammography 24 203789 Z12.31 Gastritis 9324511 K29.70 Osteoporosis 99958185 M8 1.0 Genital li torrez sclerosus 998088866 L90.0 [id number] MD GRACE Pena MD [address] [facility] [place] [address] 01/19/2025 10:12:54 01/19/2025 11:55:19 Genital lichen sclerosus 330533006 L90.0 Specialize d medical examination 22886884 Z01.419 Screening for malignant neoplasm of rectum 727675761 Z12.12 Screening mammography 24 270411 Z12.31 Extremely dense breast composition 290461499 R92.343 Health Concerns Section Related Observation LastModified by Organization Detai ls LastModified Time None Recorded Concern Status LastModified by Organization Details LastModified Time None Recorded Advance Directives Directive None Recorded Payers Insurance Date Sequence Insurance Name Policy Number Policy Huber Covered Member ID Huber Member ID Guarantor Name 01/17/2025 1 [facility] [id number] Lila Bazan [id number] Lila Bazan 09/18/2021 1 [facility]: OUT OF STATE - BLUE CARD [id number] Kaushik Bazan [id number] Lila Bazan Notes Date Note Type Note Provider Name [...] the E2 vaginal cream. Grace Norman MD [address] [facility],[address], [place], [address], [place] - [facility], 09/18/2021 12:00:00 12/24/2021 text/html This visit is a phone telehealth visit. The patient consented to the visit by phone. The patient was at home at the time of the call and the provider and patient were the only people on the line. I was at [address] [place] [address], [facility] [address], [place], [place], at the time of the call. [...] was too intense. Grace Norman MD [address] [facility] [address], [place], [address], [place] - [facility], 12/24/2021 10:55:35 10/08/2022 text/html She is here for annual exam, did see an adoption counselor who recommended an infusion for her worsening osteoporosis but her insurance gave her the run around about coverage nad it was never done. Osteoporosis not improving and did get a little bit worse, even though she is on raloxifene since 2016. 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 Note from 2020: She is [...] the past year. Grace Norman MD [address] [facility],[address], [place], [address], [place] - [facility], 10/08/2022 09:47:02 11/05/2023 text/html She is here for annual, she is having chronic dry heaving issues and cannot get an upper GI until December 2023, is frustrated. She did see the adoption counselor for her osteoporosis however the insurance did not cover the recommended infusions. She continues on the Raloxifene since 2015 however her bone density has been getting worse despite this. 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 she is also seeing her GI because of her gastritis issues. Grace Norman MD [address], [place], [address], [place] [facility], 11/05/2023 09:29:47 01/19/2025 text/html She is here for annual, doing well, is having a pinched nerve issue seeing her PCP for this, will be getting therapy. The dry heaving was due to post nasal drip, now improving. Her had open heart surgery, is recovering. Her adoption counselor is managing her osteoporosis she is hainvg insurance issue with meds. Note from 2022: She is here for annual, she is having chronic dry heaving issues and cannot get an upper GI until December 2023, is frustrated.She did see the adoption counselor for her osteoporosis however the insurance did not cover the recommended infusions. She continues on the Raloxifene since 2015 however her bone density has been getting worse despite this. Grace Norman MD [address], [place], [address], [place] [facility], 01/19/2025 11:03:42 OBGyn Episode No OBEpisode recorded.
== END 2025-09-26 09:17 | disposition home or self-care (01) ==
LOC: HO.HMGAL 09:17
PROVIDERS: PCP Nurse Practitioner Family; Visit Provider Registered Nurse Emergency
DX: J30.89 Other allergic rhinitis (principal)
CPT/HCPCS: 95117; 95165

== ENCOUNTER 2025-10-19 09:06 | Outpatient (AMB) | payer MEDICARE, SELFPAY ==
--- OUTSIDE RECORDS SUMMARY | 2025-10-19 09:50 | XMS_ITS | Data Portability ---
Author Organization [place] - [facility],, GRACE NORMAN MD Address [address] [address] Care Team Providers Care Sharepoint Engineer Name Role Phone MIKEY CHAMBERLAIN Primary Care Provider Assessment No assessment recorded. Plan of Treatment [...] Go To The Location Of Their Choice, [id number] 01/21/2025 16:15:56 hemoglob in, gastroin testinal , stool 2024 025 [email or web address] 1 In-Office Order, Internal Use Only DO Not Attach Compendium DO Not Attach Compendium, Do Not Delete/merge, [id number] 01/19/2025 10:58:38 pap test, thinprep , cervical 2022 023 [email or web address] [facility] (Centralized Electronic Ordering - All Locations), Patient Can Go To The Location Of Their Choice, [id number] 11/12/2023 09:06:10 fecal occult blood, stool 2022 023 [email or web address] 1 In-Office Order, Internal Use Only DO Not Attach Compendium DO Not Attach Compendium, Do Not Delete/merge, [id number] 11/05/2023 09:25:25 pap test, thinprep , cervical 2021 022 [email or web address] [facility] (Centralized Electronic Ordering - All Locations), Patient Can Go To The Location Of Their Choice, [id number] 10/15/2022 07:39:03 fecal occult blood, stool 2021 022 [email or web address] 1 In-Office Order, Internal Use Only DO Not Attach Compendium DO Not Attach Compendium, Do Not Delete/merge, [id number] 10/08/2022 09:45:51 pap test, thinprep , cervical 2020 021 [email or web address] [facility], Cytopathology Service, [address], [place], [address], 10/09/2021 07:23:57 fecal occult blood, stool 2020 021 [email or web address] 1 In-Office Order, Internal Use Only DO Not Attach Compendium DO Not Attach Compendium, Do Not Delete/merge, [id number] 09/18/2021 10:50:09 Referral endocrin ology referral - worsenin g osteopor osis despite being on raloxife ne since 2014. Has gastriti s, takes 40 mg omeprazo le daily. 2021 022 [facility] -(Surgeon), [address], [address], [place], [address], 02/19/2022 13:34:02 Procedures None recorded . Surgeries None recorded . Imaging US, breast, bilatera l, complete 2024 025 [facility] ([facility]), [address], [place], [address], 09/20/2025 10:42:46 MAMMO, screenin g, digital, bilatera l - Breast Aspirati on and/or Biopsy if needed 2024 025 [facility] Orders, [address], [address], [place], [address], 01/27/2025 15:37:39 MAMMO, screenin g, digital, bilatera l - Breast Aspirati on and/or Biopsy if needed 2022 023 [email or web address] [facility]), [address] [place], [address], 11/01/2024 08:41:22 MAMMO, screenin g, digital, bilatera l 2021 022 [facility]), [address] [place], [address], 10/01/2023 12:04:59 bone density 2020 021 [facility]), [address] [place], [address], 11/30/2021 14:32:47 MAMMO, screenin g, digital, bilatera l 2020 021 [facility] ([facility]), [address] [place], [address], 09/30/2021 16:36:34 Medication Orders triamcin olone acetonid e 0.1 % topical ointment 2024 025 smacmillan 1 [facility], [facility], [place], [address], 01/19/2025 10:58:41 triamcin olone acetonid e 0.1 % topical ointment 2022 023 [facility], [address] [place] [address], [place], [address], 11/05/2023 09:29:01 raloxife ne 60 mg tablet 2021 022 [facility], [address] [place] [address], [address], 10/08/2022 09:46:21 raloxife ne 60 mg tablet 2020 021 [facility], [address] [facility], [place], [address], 09/18/2021 10:50:45 Patient TargetsNo targets recorded. Patient Instructions Encounter Date Encounter Id Patient Instructions Last Modified By Organization Details Last Modified Time 09/18/2021 [id number] osteoporosis: ca re instructions Not available 09/18/2021 [...] the breast. Not available 09/18/2021 11:59:34 12/24/2021 [id number] osteoporosis: ca re instructions Not available 12/24/2021 09:46:50 This visit is a phone telehealth visit. The patient consented to the visit by phone. The patient was at home at the time of the call and the provider and patient were the only people on the line. I was at [address] [facility], [address], [place], [place], at the time of the call. [...] company denied it. She will see the blindstitch hemmer to see what they can offer her for improved management. Return for routine annual exam as scheduled. Face to face discussion for 30 minutes. Not available 12/24/2021 10:55:12 10/08/2022 [id number] osteoporosis: ca re instructions Not available 10/08/2022 09:45:51 learning about healthy weight Not available 10/08/2022 09:45:51 She is here for annual exam, did see an blindstitch hemmer who recommended an infusion for her worsening osteoporosis but her insurance gave her the run around about coverage nad it was never done. Osteoporosis not improving and did get a little bit worse, even though she is on raloxifene since 2016. Bone density was done 11/2021. She is unable to work due to her neck pain, is seeing a roller painter for this. she is also seeing her [...] needs refill. Not available 10/08/2022 09:46:43 11/05/2023 [id number] osteoporosis: ca re instructions Not available 11/05/2023 09:28:58 learning about healthy weight Not available 11/05/2023 09:25:25 She is here for annual, she is having chronic dry heaving issues and cannot get an upper GI until December 2023, is frustrated. She did see the blindstitch hemmer for her osteoporosis however the insurance did not cover the recommended infusions. She continues on the Raloxifene since 2015 however her bone density has been getting worse despite this. note from 2021: She is here for annual exam, did see an blindstitch hemmer who recommended an infusion for her worsening osteoporosis but her insurance gave her the run around about coverage nad it was never done. Osteoporosis not improving and did get a little bit worse, even though she is on raloxifene since 2016. Bone density was done 11/2021. She is unable to work due to her neck pain, is seeing a roller painter for this. she is also seeing her GI because of her gastritis issues. At this point she really needs to go back to the blindstitch hemmer, it does not make sense to continue the raloxifene for so long if it is not improving her bone density. She is frustrated because her GI issues take up a lot of her emotional energy, and she cannot get timely care. I understand. She is advised to see her blindstitch hemmer again and try to form a plan that her insurance will cover. No need to continue the raloxifene anymore. She appears to be doing well. Renew Aristoc[employer] for lichen sclerosis. Monthly self breast exam was taught, and stressed, and is advised to call if she discovers any new mass in the breast. Not available 11/05/2023 09:29:29 01/19/2025 [id number] learning about healthy weight Not available 01/19/2025 10:58:38 She is here for annual, doing well, is having a pinched nerve issue seeing her PCP for this, will be getting therapy. The dry heaving was due to post nasal drip, now improving. Her had open heart surgery, is recovering. Her blindstitch hemmer is managing her osteoporosis she is hainvg insurance issue with meds. Mammo shows dense breasts, she would like ultrasound for screening. ____ Note from 2022: She is here for annual, she is having chronic dry heaving issues and cannot get an upper GI until December 2023, is frustrated. She did see the blindstitch hemmer for her osteoporosis however the insurance did [...] DO Not Attach Compendium, Do Not Delete/merge, [id number] 09/18/2021 10:24:47 09/18/20 21 09/18/2021 PAP1C ASE [id number] ThinP rep Pap, Image d: NEGAT PAVITHRA FOR SQUAM OUS INTRA EPITH ELIAL LESIO N AND MALIG NISHA . Atrop hy. Note: The Pap test is a scree lino test with an inher ent false negat pavithra rate. Autom ated presc reeni ng of all liqui d based speci mens is perfo rmed by the ThinP rep Imagi ng [facility] dMansi Duron , [place]( CP) (Case elect gwen da dima d 10 06 2021) ADEQU ACY: Satis facto ry . SOURC E: ThinP rep Pap HPV IF ASCUS , Cervi luis manuel, Image d CLINI LUIS MANUEL INFOR MATIO N: HPV If Diagn osis of ASCUS . LPS 09/13 neg, z01.4 19 Not Available [facility], Cytopathology Service [address] [place], [address], 10/08/2021 08:06:09 10/08/20 22 10/08/2022 [facility] results Steff nt Name: MARICARMEN DRISCOLL nt : [birth year] (Age: 62) Lab Acces mark #: [id number] Colle ction Date: 10/08 Acces mark Date: 10/09 Sign Out Date: 10/11 Tissu e Sourc e: 1: THINP REP RAGMAN PAP TEST, CERVI LUIS MANUEL: Final Diagn [...] n, LPS 09/18 negat pavithra Phone #: [phone], On-Ca ll Patho logis t: [id number] Not Available [facility] (Centralized Electronic Ordering - All Locations) Patient Can Go To The Location Of Their Choice, [id number] 10/11/2022 14:53:18 10/08/20 22 10/08/2022 fecal occul t blood , stool Occult Blood negati ve Not Available In-Office Order Internal Use Only DO Not Attach Compendium DO Not Attach Compendium, Do Not Delete/merge, [id number] 10/08/2022 08:56:58 11/05/20 23 11/05/2023 [facility] results Patie nt Name: MARICARMEN DRISCOLL nt : [birth year] (Age: 63) Lab Acces mark #: [id number] Colle ction Date: 11/05 Acces mark Date: 11/05 Sign Out Date: 11/11 Tissu e Sourc e: 1: THINP REP RAGMAN PAP TEST, CERVI LUIS MANUEL: Final Diagn [...] mcfadden or ace mendoza. Perfo rmed at [facility] ate Refer [facility], [address] [place] Clini luis manuel Histo ry (othe r): Z01.4 19, larryi ne lissae n, LPS 10/08 neg Phone #: [phone], On-Ca ll Patho logis t: [id number] Not Available [facility] (Centralized Electronic Ordering - All Locations) Patient Can Go To The Location Of Their Choice, [id number] 11/11/2023 13:51:21 11/05/20 23 11/05/2023 fecal occul t blood , stool Occult Blood negati ve Not Available In-Office Order Internal Use Only DO Not Attach Compendium DO Not Attach Compendium, Do Not Delete/merge, [id number] 11/05/2023 08:59:09 01/19/20 25 01/21/2025 IGP, RFX APTIM A HPV ASCU diagnosis: Nikunj ARSHAD FOR INTRA EPITH ELIAL LESIO N OR SHEREEN CAMERON . CELLU LAR MESA ES ASSOC IATED WITH ATROP HY ARE PRESE NT. Not Available [facility] ([facility]) [address] [facility], [place], [address], 01/21/2025 16:15:55 01/19/20 25 01/21/2025 IGP, RFX APTIM A HPV ASCU specimen adequacy: Nikunj ga Satis facto torres for evalu ation . Endoc ervic al compo nent may not be disti nguis hed in cases of atrop hy. Not Available [facility] ([facility]) [address] [facility], [place], [address], 01/21/2025 16:15:55 01/19/20 25 01/21/2025 IGP, RFX APTIM A HPV ASCU clinician provided ICD10: Nikunj ga Z01.4 19 Not Available [facility] ([facility]) [address] [place], [address], 01/21/2025 16:15:55 01/19/20 25 01/21/2025 IGP, RFX APTIM A HPV ASCU performed by: Nikunj Julien Prior , Cytoharmeet ga (ASCP ) Not Available [facility] ([facility]) [address] [place], [address], 01/21/2025 16:15:55 01/19/20 25 01/21/2025 IGP, RFX APTIM A HPV ASCU . . Not Available [facility] ([facility]) [address] [facility], [place], [address], 01/21/2025 16:15:55 01/19/20 25 01/21/2025 IGP, RFX [...] ts do occur . Not Available [facility] ([facility]) [address] [place], [address], 01/21/2025 16:15:55 01/19/20 25 01/21/2025 IGP, RFX APTIM A HPV ASCU test methodology: Commen t This liqui d based ThinP rep(R ) pap test was scree gisselle with the use of an image guide d systjovita m. Not Available [facility] ([facility]) [address] [place], [address], 01/21/2025 16:15:55 01/19/20 25 01/21/2025 IGP, RFX APTIM A HPV ASCU . Commen t The HPV DNA refle x crite shad were not met with this speci men resul t there fore, no HPV testi ng was perfo rmed. Not Available [facility] ([facility]) [address] [place], [address], 01/21/2025 16:15:55 01/19/20 25 01/19/2025 hemog lobin , gastr ointe glendy l, stool Occult Blood negati ve Not Available In-Office Order Internal Use Only DO Not Attach Compendium DO Not Attach Compendium, Do Not Delete/merge, [id number] 01/19/2025 10:28:38 09/30/20 21 09/29/2021 MAMMO , scree lino, digit al, bilat eral No observ ation record ed. [address], [address], 10/01/2021 07:20:45 11/30/19 22 11/29/2021 bone densi ty No observ ation record ed. [address], [address], 12/03/2021 09:02:39 09/30/20 22 09/30/2022 MAMMO , scree lino, digit al, bilat eral No observ ation record ed. [address], [address], 10/01/2022 08:01:40 10/14/20 22 10/14/2022 MAMMO , diagn ostic , digit al, unila teral No observ ation record ed. [address], [address], 10/15/2022 08:25:08 10/01/20 23 10/01/2023 MAMMO , scree lino, digit al, bilat eral No observ ation record ed. [address], [address], 10/02/2023 03:07:53 11/08/20 24 11/08/2024 MAMMO , scree lino, digit al, bilat eral No observ ation record ed. [address], [address], 11/08/2024 11:12:11 09/20/20 25 09/20/2025 US, regis ga, lesli saleem, compl ete No observ ation record ed. [facility] [address] [facility], [place], [address], 09/20/2025 11:03:16 Result Notes None recorded. Problems Name Problem SNOMED Code Status Onset Date Resolution Date Notes Provider Name and Address Organization Details Recorded Time Chronic neck pain 531291495397 7 Active degenerat pavithra disk disease Jeanne barnett [place] - [facility], 7 09:51:36 Herpes zoster 7760363 Active had shingles when her mother passed in 2014 Grace Norman MD [address], [place], [place], [place] - [facility], 5 09:19:32 Osteoporo sis 54636423 Active Grace Norman MD [address] [facility], [place], [address], [place] - [facility], 5 09:20:59 Vitamin D deficienc y 83094386 Active Grace Norman MD [address], [place], [address], [place] - [facility], 5 09:20:59 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 Grace Norman MD [address] [facility],[address], [place], [address], [place] - [facility], 5 09:19:32 Lichen sclerosus et atrophicu s Active 2016 Grace Norman MD [address], [place], [address], [place] - [facility], 7 09:35:22 Atrophic vaginitis 00267522 Active 2019 Grace Norman MD [address], [place], [address], [place] - [facility], 0 10:55:16 Gastritis 0830555 Active 2021 Grace Norman MD [address] [facility],[address], [place], [address], [place] - [facility], 2 10:52:33 Neck webbing 30720002 Active 2022 Hope barnett [place] - [facility], 3 09:06:29 Notes:currently trying to fi gure out stomach issues Problem Notes None recorded. Procedures Surgical History Date Name Laterality Status Provider Name and Address Organization Details Recorded Time 4 Most Recent Mammogram completed Sonia Berger [place] - [facility], 01/11/2025 13:53:59 2 Most Recent Bone Density completed Sonia Berger [place] - [facility], 12/24/2021 09:24:42 7 Vulvar Biopsy completed Grace Norman MD [address] [facility],[address], [place], [address], [place] - [facility], 09/08/2017 10:11:40 5 Other [facility] [place] [facility], 10/24/2015 08:49:11 9 Dilation and Curettage completed Sonia Berger [place] - [facility], 03/10/2014 09:29:21 6 Other completed Sonia Berger [place] - [facility], 03/10/2014 09:29:21 1 Other completed Sonia Ab [place] - [facility], 03/10/2014 09:29:21 Imaging Results None recorded. Procedure Notes None recorded. Medical Equipment None Reported. Allergies Allergen ID Allergen Name Allergen Category Reaction Reaction Severity Criticality Documentation Date Start Date Code Code System Note Provider Name and Address Organization Details Recorded Time 16622 Product containin g penicilli n (product) medicatio n nausea Not available Not available 03/10/2014 83975 8001 SNOMED burni ng feeli ng Sonia [...] DateTime 12/24/2021 149.86 cm Sonia Baker in [facility], 12/24/2021 09:22:53 Date Recorded Body weight Body mass index (BMI) Body height Heart rate Systolic And Diastolic Provider Name and Address Organization Details Last Updated DateTime 01/19/2025 03460.94 g 23.6 kg/m2 147.32 cm 87 /min 129/62 mm[Hg] Sonia Smallwood in [facility], 01/19/2025 10:25:13 Date Recorded Body height Body mass index (BMI) Body weight Body temperature Heart rate Systolic And Diastolic Provider Name and Address Organization Details Last Updated DateTime 149.86 cm 23.3 kg/m2 45249.8 4 g 97 [degF] 103 /min 137/79 mm[Hg] Sonia Smallwood in [facility], 10:27:06 Date Recorded Body height Body mass index (BMI) Body weight Heart rate Systolic And Diastolic Provider Name and Address Organization Details Last Updated DateTime 10/08/2022 149.86 cm 24.4 kg/m2 53600.68 g 111 /min 155/82 mm[Hg] Hope Smallwood in [facility], 10/08/2022 09:00:37 Date Recorded Body weight Body mass index (BMI) Body height Provider Name and Address Organization Details Last Updated DateTime 11/05/2023 49311.83 g 20.4 kg/m2 149.86 cm Hope Smallwood in [facility], 11/05/2023 09:00:56 Social History Question Answer Notes LastModified by Organizat ion Details LastModified Time Tobacco Smoking Status Never Smoker Not Available [employer] 09/26/2020 03:19:39 How Many Years Have You Consumed Alcohol? 40 Information not available 09/18/2021 What Is Your Level Of Caffeine Consumption? Occasional [id number] Information not available 09/26/2020 In The 14 [...] Type Of Diet Are You Following? REGULAR [id number] Information n ot available 09/26/2020 Which Illicit Or Recreational Drugs Have You Used? No [id number] Information not available 09/26/2020 Do You Reside In Or Have You Traveled To An Area Where Ebola Virus Transmission Is Active? No [id number] Information not available 09/26/2020 Education 12 Information no t available 03/10/2014 What Is The Highest Grade Or Level Of School You Have Completed Or The Highest Degree You Have Received? [id number] Information not available 09/18/2021 How Many Days [...] available 09/18/2021 Are You Sexually Active? Yes [id number] Information not available 09/26/2020 How Much Tobacco Do You Smoke? No [id number] Information not available 09/26/2020 General Stress Level Low Information not available 09/13/2020 How Many Years Have You Smoked Tobacco? 0 [id number] Information not available 09/26/2020 Have You Recently [...] is your level of alcohol consumption? Occasional [id number] Information not available 09/26/2020 Do you or have you ever used smokeless tobacco? Never used smokeless tobacco [id number] Information not available 09/26/2020 Are you currently employed? No Information not available 09/18/2021 What is your occupation? retired [employer] Information not available 08/21/2017 Do you or have you ever used e-cigarettes or vape? Never used electronic cigarettes [id number] Information not available 09/26/2020 What is your exercise level? Occasional Information not available 10/08/2022 Mental Status Question Answer Note LastModified by Organization D etails LastModified Time Do you feel stressed (tense, restless, nervous, or anxious, or unable to sleep at night)? [id number] Information not available 09/18/2021 Family History Relationship [...] virus, trivalent, preservative 3 completed Not Available [facility] 11/05/2023 11:42:08 Influenza, split virus, trivalent, preservative 4 completed Not Available [facility] 11/05/2023 11:42:08 Influenza, split virus, trivalent, preservative 5 completed Not Available [facility] 11/05/2023 11:42:08 influenza, unspecified formulation 6 completed Not Available [facility] 11/05/2023 11:42:08 Influenza, split virus, quadrivalent, preservative 8 completed Not Available [facility] 11/05/2023 11:42:08 Influenza, split virus, quadrivalent, preservative 9 completed BRIAN Aranda in [facility], 09/13/2019 09:27:33 varicella 9 completed BRIAN Aranda in [facility], 09/13/2019 09:27:54 Influenza, split virus, quadrivalent, preservative 0 completed Not Available [facility] 11/05/2023 11:42:08 COVID-19, mRNA, LNP-S, PF, 30 mcg/0.3 mL dose 1 completed Not Available [facility] 11/05/2023 11:42:08 Influenza, split virus, quadrivalent, preservative 1 completed Not Available [facility] 11/05/2023 11:42:08 COVID-19, mRNA, LNP-S, PF, 30 mcg/0.3 mL dose 1 completed Not Available [facility] 11/05/2023 11:42:08 Influenza, split virus, trivalent, preservative [...] mcg/0.5 mL 4 completed BRIAN Aranda in [facility], 01/19/2025 10:24:46 Influenza, split virus, trivalent, PF 4 completed BRIAN Aranda in [facility], 01/19/2025 10:24:46 Past Encounters Encounter ID Performer Location Encounter Start Date Encounter Closed Date Diagnosis/Indication Diagnosis SNOMED-CT Code Diagnosis ICD10 Code Diagnosis IMO Codes Diagnosis Note [id number] MD GRACE Pena MD [address] [place] [address], [address] [place] [address] 03/10/2014 09:00:07 03/10/2014 15:03:04 Specialized medical examination 44187027 Screening for malignant neoplasm of rectum 098588075 Screening mammography 93503336 [id number] MD GRACE Pena MD [address] [place] [address], [address] [place] [address] 06/15/2015 14:16:32 06/15/2015 15:43:52 Specialized medical examination 36873991 Screening for malignant neoplasm of rectum 696051414 Screening mammography 67594983 Menopausal syndrome 248466585 [id number] MD GRACE Pena MD [address] [place] [address], [address] [address] 10/24/2015 08:36:36 10/24/2015 11:46:55 Osteoporosis 70291914 M81.0 Vitamin D deficiency 347 79368 E55.9 [id number] MD GRACE Pena MD [address] [place] [address], [address] [place] [address] 06/19/2016 07:54:43 06/19/2016 10:11:54 Specialized medical examination 89394530 Z01.419 Screening for malignant neoplasm of rectum 962883683 Z12.12 Screening mammography 24 975441 Z12.31 Atrophic vulvovaginitis 12438728 N95.2 [id number] MD GRACE Pena MD [address] [place] [address] 08/21/2017 09:40:54 08/21/2017 11:18:52 Specialized medical examination 60518950 Z01.419 Screening for malignant neoplasm of rectum 065547161 Z12.12 Screening mammography 24 509530 Z12.31 Osteoporosis 05354518 M8 1.0 [id number] MD GRACE Pena MD [address] [place] [address] 09/08/2017 09:12:44 09/08/2017 13:09:26 Lesion of vulva 214476434 N90.4 [id number] MD GRACE Pena MD [address] [place] [address] 08/24/2018 09:15:18 08/24/2018 13:12:22 Atrophic vulvovaginitis 95688027 N95.2 Specialize d medical examination 75664574 Z01.419 Screening for malignant neoplasm of rectum 716148151 Z12.12 Screening mammography 24 150412 Z12.31 Lichen scl erosus et atrophicus 95335865 L90.0 Osteoporosis 28185342 M8 1.0 [id number] MD GRACE Pena MD [address] [place] [address] 09/13/2019 09:17:44 09/13/2019 10:26:52 Atrophic vulvovaginitis 51456793 N95.2 Specialize d medical examination 17814069 Z01.419 Screening for malignant neoplasm of rectum 650753758 Z12.12 Screening mammography 24 878864 Z12.31 Lichen scl erosus et atrophicus 57107668 L90.0 [id number] MD GRACE Pena MD [address] [place] [address] 09/08/2020 10:12:23 09/08/2020 12:55:23 Osteoporosis 45344368 M81.0 [id number] MD GRACE Pena MD [address] [place] [address] 09/13/2020 10:41:04 09/13/2020 11:17:12 Specialized medical examination [id number] Z01.419 Screening for malignant neoplasm of rectum 858829547 Z12.12 Screening mammography 24 632582 Z12.31 Osteoporosis 28505442 M8 1.0 Atrophic vaginitis 42909 000 N95.2 [id number] MD GRACE Pena MD [address] [place] [address] [id number] 5 09/18/2021 10:21:33 09/18/2021 13:38:16 Specialized medical examination [id number] Z01.419 Screening for malignant neoplasm of rectum 518819385 Z12.12 Screening mammography 24 725147 Z12.31 Menopausal syndrome 1237 13543 N95.8 Osteoporosis 10467276 M8 1.0 [id number] MD GRACE Pena MD [address] [place] [address] 16415-344 5 12/24/2021 09:13:10 12/24/2021 13:24:56 Osteoporosis 09504189 M81.0 Gastritis 2025825 K29.70 Vitamin D deficiency 347 43827 E55.9 [id number] MD GRACE Pena MD [address] [place] [address] 70754-007 5 10/08/2022 08:49:53 10/08/2022 10:00:10 Specialized medical examination 50258399 Z01.419 Screening for malignant neoplasm of rectum 462692228 Z12.12 Screening mammography 24 534654 Z12.31 Osteoporosis 27250335 M8 1.0 Genital li torrez sclerosus 212465765 L90.0 [id number] MD GRACE Pena MD [address] [place] [address] 31209-965 5 11/05/2023 08:54:55 11/05/2023 11:47:48 Specialized medical examination 78358697 Z01.419 Screening for malignant neoplasm of rectum 468974266 Z12.12 Screening mammography 24 358110 Z12.31 Gastritis 7459389 K29.70 Osteoporosis 07332658 M8 1.0 Genital li torrez sclerosus 181336524 L90.0 [id number] MD GRACE Pena MD [address] [facility] [place] [phone] 5 01/19/2025 10:12:54 01/19/2025 11:55:19 Genital lichen sclerosus 704615521 L90.0 Specialize d medical examination 85980312 Z01.419 Screening for malignant neoplasm of rectum 733201236 Z12.12 Screening mammography 24 815656 Z12.31 Extremely dense breast composition 389806965 R92.343 Health Concerns Section Related Observation LastModified by Organization Detai ls LastModified Time None Recorded Concern Status LastModified by Organization Details LastModified Time None Recorded Advance Directives Directive None Recorded Payers Insurance Date Sequence Insurance Name Policy Number Policy Huber Covered Member ID Huber Member ID Guarantor Name 01/17/2025 1 [facility] [id number] Lila Bazan [id number] Lila Bazan 09/18/2021 1 [facility]: OUT OF STATE - BLUE CARD [id number] Kaushik Bazan [id number] Lila Bazan Notes Date Note Type [...] E2 vaginal cream. Grace Norman MD [address] [facility],[address], [place], [address], [place] - [facility], 09/18/2021 12:00:00 12/24/2021 text/html This visit is a phone telehealth visit. The patient consented to the visit by phone. The patient was at home at the time of the call and the provider and patient were the only people on the line. I was at [address] [place] [address], [facility] [address], [place], at the time of the call. [...] was too intense. Grace Norman MD [address] [facility] [address], [place], [address], [place] - [facility], 12/24/2021 10:55:35 10/08/2022 text/html She is here for annual exam, did see an blindstitch hemmer who recommended an infusion for her worsening osteoporosis but her insurance gave her the run around about coverage nad it was never done. Osteoporosis not improving and did get a little bit worse, even though she is on raloxifene since 2016. She is unable to work due to her neck pain, is seeing a roller painter for this. Note from 2020: She is [...] the past year. Grace Norman MD [address] [facility],[address], [place], [address], [place] - [facility], 10/08/2022 09:47:02 11/05/2023 text/html She is here for annual, she is having chronic dry heaving issues and cannot get an upper GI until December 2023, is frustrated. She did see the blindstitch hemmer for her osteoporosis however the insurance did not cover the recommended infusions. She continues on the Raloxifene since 2015 however her bone density has been getting worse despite this. note from 2021: She is here for annual exam, did see an blindstitch hemmer who recommended an infusion for her worsening osteoporosis but her insurance gave her the run around about coverage nad it was never done.Osteoporosis not improving and did get a little bit worse, even though she is on raloxifene since 2015.Bone density was done 11/2021.She is unable to work due to her neck pain, is seeing a roller painter for this. she is also seeing her GI because of her gastritis issues. Grace Norman MD [address], [place], [address], [employer] [facility], 11/05/2023 09:29:47 01/19/2025 text/html She is here for annual, doing well, is having a pinched nerve issue seeing her PCP for this, will be getting therapy. The dry heaving was due to post nasal drip, now improving. Her had open heart surgery, is recovering. Her blindstitch hemmer is managing her osteoporosis she is hainvg insurance issue with meds. Note from 2022: She is here for annual, she is having chronic dry heaving issues and cannot get an upper GI until December 2023, is frustrated.She did see the blindstitch hemmer for her osteoporosis however the insurance did not cover the recommended infusions. She continues on the Raloxifene since 2015 however her bone density has been getting worse despite this. Grace Norman MD [address], [place], [address], [employer] - [facility], 01/19/2025 11:03:42 OBGyn Episode No OBEpisode recorded.
== END 2025-10-19 09:07 | disposition home or self-care (01) ==
LOC: HO.HMGAL 09:06
PROVIDERS: PCP Nurse Practitioner Family; Visit Provider Registered Nurse Emergency
DX: J30.89 Other allergic rhinitis (principal)
CPT/HCPCS: 95117; 95165

== ENCOUNTER 2025-11-07 08:58 | Outpatient (AMB) | payer MEDICARE, SELFPAY | END 2025-11-07 08:58 | disposition home or self-care (01) | LOC: HO.HMGAL 08:58 | PROVIDERS: PCP Nurse Practitioner Family; Visit Provider Registered Nurse Emergency | DX: J30.89 Other allergic rhinitis (principal) | CPT/HCPCS: 95117; 95165 ==